=== PATIENT | female | born 1985 | race Caucasian/White ===

== ENCOUNTER 2020-05-26 13:35 | Outpatient (REF) | payer OTHER, SELFPAY | END 2020-05-26 13:36 | disposition home or self-care (01) | LOC: HO.LAB 13:35 | PROVIDERS: PCP Internal Medicine; Visit Provider Internal Medicine | DX: Z20.828 Contact with and (suspected) exposure to other viral communicable diseases (principal) | CPT/HCPCS: 87635 ==

== ENCOUNTER 2020-12-02 11:45 | Outpatient (REF) | payer OTHER, SELFPAY ==
[2020-12-02 13:07] LABS: COVID-19 Test Negative (Negative)
== END 2020-12-02 11:46 | disposition home or self-care (01) ==
LOC: HO.LAB 11:45
PROVIDERS: Visit Provider Internal Medicine
DX: Z20.822 Contact with and (suspected) exposure to COVID-19 (principal)
CPT/HCPCS: 36415; 87635; C9803

== ENCOUNTER 2021-08-04 10:43 | Outpatient (REF) | payer OTHER, SELFPAY | END 2021-08-04 10:44 | disposition home or self-care (01) | LOC: HO.LAB 10:43 | PROVIDERS: Visit Provider Internal Medicine | DX: Z20.822 Contact with and (suspected) exposure to COVID-19 (principal) | CPT/HCPCS: C9803; U0003; U0005 ==

== ENCOUNTER 2022-10-03 15:31 | Emergency (ER) | payer OTHER, SELFPAY ==
[2022-10-03 15:35] VITALS: BP 128/77; PULSE 93; RESP 18; TEMP 36.9; O2SAT 99; BMI 28.1
--- NOTE | 2022-10-03 15:42 | ED.EAR ---
HPI - Ear Problem General Chief complaint: Ear Problems Stated complaint: abcess on side of face? Time Seen by Provider: 10/03/22 15:41 Source: patient Mode of arrival: ambulatory Limitations: no limitations History of Present Illness HPI Narrative: 37 yo female with history of anxiety/depression, obesity, smoker, allergic rhinitis who presents to the ER for evaluation of right sided facial swelling, right external ear pain and drainage. She reports symptoms started about 1 month ago when she had a small cut inside of her right ear. She kept picking at it and noticed it kept crusting over with yellow crust. It would drain clear fluid. She states she kept picking at the scabbing and crust. Over the last couple of weeks she has noticed swelling in the preauricular area and down into the neck. It is swollen and tender compared to the left side. She denies any redness of the skin, fevers, chills, dental pain, inner ear pain, posterior ear pain MD Complaint: ear pain and ear discharge Location: right ear Duration: constant Severity: severe Relieving factors: NDAIDs Exacerbating factors: chewing, position of head and palpation Discharge from ear: yes - clear Associated symptoms ear: headache, external ear tenderness, ear swelling, neck pain and neck swelling Treatment prior to arrival: other (NSAID) Related Data Home Medications Medication Instructions Recorded Confirmed diazepam 10 mg tablet 10 mg PO BID 04/19/22 04/19/22 Previous Rx's Medication Instructions Recorded fluticasone propionate 50 2 spray intranasal DAILY PRN 04/19/22 mcg/actuation nasal allergy symptoms 30 days #16 grams spray,suspension trazodone 50 mg tablet 50 mg PO BEDTIME PRN insomnia 30 04/19/22 days #30 tabs ibuprofen 800 mg tablet 800 mg PO Q8H PRN pain 30 days #90 07/31/22 tabs levofloxacin 500 mg tablet 500 mg PO DAILY #10 tabs 10/03/22 mupirocin 2 % topical ointment 1 appl topical TID #22 grams 10/03/22 tramadol 50 mg tablet 50 mg PO Q8H PRN severe pain 10/03/22 (scale score 7-10) #6 tabs Allergies Allergy/AdvReac Type Severity Reaction Status Date / Time No Known Allergies Allergy Mild NOT Verified 04/19/22 13:20 APPLICABLE [facility] Past Medical History Medical History Allergic rhinitis Anxiety Depression Hyperhidrosis Insomnia Obesity (BMI 30-39.9) Smoker Surgical History (Updated 04/19/22 @ 13:40 by Florentino Canales MD) History of bilateral tubal ligation (~09/2015) History of tonsillectomy Social History Social History Housing: Apartment Patient Tobacco Use Status: Current everyday Tobacco user Tobacco use type: Cigarette Cigarettes Per Day: 5 e-Cigarette/Vaping Use: Never Used Second Hand Smoke Exposure: Yes Advance Directives: No Advance Directives Information Provided: Yes service: No Current occupational status: employed 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 Oriented X3. No acute distress. Eyes: Pupils equal, round and reactive to light. ENT: right external ear with a small superficial laceration to the external auditory canal with yellow crusting. right TM with mild erythema, no bulging or loss of landmarks. preauricular area on the right with moderate swelling and tenderness, no erythema or fluctuance. no mastoid tenderness. Neck: Normal inspection. Neck supple. right sided neck tenderness and mild swelling of the soft tissues laterally. CVS: Normal heart rate and rhythm. Pulses normal. Respiratory: No respiratory distress. Breath sounds normal. Skin: Skin warm and dry. Normal skin color. Normal skin turgor. No rashes. Extremities: Normal inspection x4, normal ROM Neuro: Oriented X 3. grossly normal, non-focal Course Course Course Narrative: 37 yo female presenting with right ear pain, swelling, discharge associated with facial and neck swelling. Normal ROM of the neck, no trismus. No erythema or warmth to the area. Most likely has superficial infection from inside of the ear with the small cut, that slowly spreading to the face. No abscess on exam. She is afebrile, nontoxic appearing. Will start PO antibiotics, topical mupricocin and have her follow up with her PCP. Stable for d/c home. Strict return precautions were discussed. Medical Decision Making Differential Diagnosis Differential Diagnoses: The differential diagnosis associated with the presentation includes otitis externa, otits media, facial abscess, superficial infection/cellulitis, less likely mastoiditis, deep tissue infection, dental infection External Record Review External record reviewed: Prior outpatient labs Tests considered The following testing was considered but not selected: labs and CT scan considered but deferred today - will treat with PO abx and reassess as outpatient by PCP Prescription Management I considered prescription management with: Pain Medication and Antibiotic Critical Care Time Critical Care Time Critical Care Time: No Discharge Plan Discharge Clinical Impression: Otitis externa, Facial swelling Patient Disposition: Home, Self-Care Instructions: Otitis Externa (ED) Additional Instructions: Use warm compresses to the area several times per day Take the prescribed antibiotic, complete the entire course Continue your ibuprofen 800 mg every 6-8 hours, take with food Follow up with your PCP in the next 1-2 weeks. If you develop new or worsening symptoms call 911 or come back to the ER for further evaluation. Prescriptions: New levofloxacin 500 mg tablet 500 mg PO DAILY Qty: 10 0RF mupirocin 2 % ointment 1 appl topical TID Qty: 22 0RF tramadol 50 mg tablet 50 mg PO Q8H PRN (Reason: severe pain (scale score 7-10)) Qty: 6 0RF No Action ibuprofen 800 mg tablet 800 mg PO Q8H PRN (Reason: pain) 30 Days Qty: 90 2RF Rx Instructions: Take with food diazepam 10 mg tablet 10 mg PO BID fluticasone propionate 50 mcg/actuation spray,suspension 2 spray intranasal DAILY PRN (Reason: allergy symptoms) 30 Days Qty: 16 5RF Rx Instructions: administer into each nostril trazodone 50 mg tablet 50 mg PO BEDTIME PRN (Reason: insomnia) 30 Days Qty: 30 1RF Referrals: Florentino Canales MD [Primary Care Provider] - Interventions: ED Discharge Assessment Last Done: 10/03/22 15:47 Discharge Date/Time: 10/03/22 15:50
== END 2022-10-03 15:50 | disposition home or self-care (01) ==
LOC: HO.ED 15:47
PROVIDERS: Emergency Provider Emergency Medicine; PCP Internal Medicine
DX: H60.91 Unspecified otitis externa, right ear (principal); R22.1 Localized swelling, mass and lump, neck; F17.210 Nicotine dependence, cigarettes, uncomplicated; Z71.6 Tobacco abuse counseling; Z79.899 Other long term (current) drug therapy
CPT/HCPCS: 99282; 99283

== ENCOUNTER 2023-05-24 19:12 | Emergency (ER) | payer OTHER, SELFPAY ==
[2023-05-24 19:16] VITALS: BP 121/80; PULSE 90; RESP 18; TEMP 36.9; O2SAT 97; BMI 28.2
--- NOTE | 2023-05-24 19:33 | ED_ITS ---
HPI - General Adult General Chief complaint: General Medical Stated complaint: rash all over body Time Seen by Provider: 05/24/23 19:31 Source: patient and RN notes reviewed Mode of arrival: ambulatory Limitations: no limitations History of Present Illness HPI narrative: This is a [id number] presenting to the ER with complaints of diffuse itchy rash throughout her entire body x several days. Pt denies nay new lotions, soaps, detergents or sleeping arangements. She states that she at times scratches so much her skin starts to bleed. States that her family at home are starting to have similar symptoms. PT reports that she is findings bugs in her apartment and her landlord has not had any bug exterminators come out to evaluate the property. She does report that someone came into her apartment and placed miec killer powder across her apartment that she is unsure if this is safe as it has instructions to keep within the bag. She denies any difficulty swallowing, chest pain, or shortness of breath. Denies hx of similar symptoms in the past. No fevers, chills, nausea, vomiting or diarrhea. She has tried topical benadryl without any relief. No other complaints or concerns at this time. MD complaint: Rash Onset (ago): day(s) Pain Consistency: constant Relieving factors: none Exacerbating factors: none Associated symptoms: rash Treatments prior to arrival: none Related Data Home Medications Medication Instructions Recorded Confirmed diazepam 10 mg tablet 10 mg PO BID 04/19/22 11/29/22 Previous Rx's Medication Instructions Recorded trazodone 50 mg tablet 50 mg PO BEDTIME PRN insomnia 30 04/19/22 days #30 tabs mupirocin 2 % topical ointment 1 appl topical TID #22 grams 10/03/22 tramadol 50 mg tablet 50 mg PO Q8H PRN severe pain 10/03/22 (scale score 7-10) #6 tabs ibuprofen 800 mg tablet 800 mg PO Q8H PRN pain 30 days #90 10/31/22 tabs fluticasone propionate 50 2 spray intranasal DAILY PRN for 11/25/22 mcg/actuation nasal allergies #48 mL spray,suspension miscellaneous medical supply 1 ea miscellaneous DAILY #1 ea 11/29/22 diphenhydramine HCl 50 mg tablet 50 mg PO BEDTIME PRN itching #20 05/24/23 (Benadryl Allergy) tabs permethrin 5 % topical cream 1 appl topical Q14D 2 doses #60 05/24/23 grams prednisone 20 mg tablet 40 mg (2 x 20 mg) PO DAILY 5 days 05/24/23 #10 tabs Allergies Allergy/AdvReac Type Severity Reaction Status Date / Time No Known Allergies Allergy Mild NOT Verified 05/24/23 19:16 APPLICABLE Review of Systems Review of Systems: Yes all other systems are reviewed and are negative Constitutional: Constitutional: Reports as per [facility] Past Medical History Attestation statement: The following information was validated with the patient. 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 Cognitive needs: No Hearing needs: No Vision needs: Yes Physical Exam ED Vital Signs: Vital Signs - 24 hr 05/24/23 19:16 Temperature 98.4 F Pulse Rate 90 Respiratory Rate 18 Blood Pressure 121/80 Pulse Oximetry 97 Oxygen Delivery Method Room Air BMI result Body Mass Index 28.2 Const General: cooperative, comfortable and no acute distress Orientation/consciousness: patient oriented x3 Limitations: no limitations [facility] Head: Yes normal to inspection, Yes normocephalic and Yes atraumatic Ears: hearing grossly normal bilaterally General nose exam: Normal external nose present Face and sinus: Yes normal facial exam Mouth: Normal oral and palatal mucosa present, oropharynx normal and moist mucous membranes Throat: Yes posterior oropharynx normal Eyes General: appearance normal, both eyes and all related structures Eyelids: Yes eyelids normal Conjunctivae: conjunctivae normal Sclerae: sclerae normal Pupils: Equal, round and reactive pupils present EOM: EOMs intact bilaterally Neck Neck: Yes normal visual inspection and Yes full ROM Lymphatic: no lymphadenopathy noted Chest Chest palpation & inspection: normal inspection of the chest Resp Effort & Inspection: normal respiratory effort and able to speak in complete sentences Auscultation: clear to auscultation bilaterally, no crackles, no rales, no rhonchi and no wheezes Cardio Rate: regular rate Rhythm: regular rhythm Heart sounds: S1 normal heart sound present and S2 normal heart sound present GI Inspection: Yes normal to inspection Skin Other: Pt with excoriations to bilateral forearms, no evidence of rash noted. scattered hives noted to left flank Neuro General: patient oriented x3 and moves all extremities Cranial nerves: Yes Equal, round and reactive pupils present Extrem General: Yes normal to inspection Right upper extremity: normal to inspection Left upper extremity: normal to inspection Right lower extremity: normal to inspection Left lower extremity: normal to inspection Medical Decision Making Medical Decision Making MDM Narrative: 37 y/o F presenting to the ER with complaints of itching for the last several days. Concerns for ?bug/allergic reaction to something in her home as several others in her house have similar symptoms. On arrival, pt actively scratching at arms. Vital signs stable. Airway patent, lung CTAB. Skin with no obvious rash, slight hives noted to flank, otherwise unremarkable examination. DDX including contact dermatitis, allergic dermatitis, atopic dermatitis, scabies, bed bugs. Given presentation, will treat for both allergic dermatitis and ?scabies given others in home are being treated for this as well. Discussed return precautions. Recommended to contact landlord for inspection of home. Pt understands and agrees with plan. Stable for d/c. Differential Diagnosis Differential Diagnoses: The differential diagnosis associated with the presentation includes see above Discharge Plan Discharge Clinical Impression: Itching Patient Disposition: Home, Self-Care Instructions: Itchy Skin (ED) Additional Instructions: It is unclear what is causing you to H however given your living situation as well as other close contacts with similar symptoms, is concerning that this can be a scabies or bug rash. Please contact your landlord immediately and have the place thoroughly examined by a bug legal executive assistant to determine what kind of bugs are within your living space. I am treating you with multiple medications. Benadryl will help with the itching sensation, this will cause drowsiness, do not drink alcohol or drive while taking it. Prednisone is a steroid, take this for the next 5 days, this will help decrease inflammation and itching sensation. Please use permethrin cream topically as directed. Please apply cream to all areas of the body from neck to soles of feet, leave on for 8-14 hours before moving. One application is usually curative but may repeat if living lytes are observed after 14 days of the 1st treatment. If any new or worsening symptoms will occur, please return for re-evaluation. Prescriptions: New prednisone 20 mg tablet 40 mg PO DAILY 5 Days Qty: 10 0RF Benadryl Allergy 50 mg tablet 50 mg PO BEDTIME PRN (Reason: itching) Qty: 20 0RF permethrin 5 % cream 1 appl topical Q14D Qty: 60 0RF Rx Instructions: apply second treatment 14 days after first treatment if live lice remain No Action ibuprofen 800 mg tablet 800 mg PO Q8H PRN (Reason: pain) 30 Days Qty: 90 2RF Rx Instructions: Take with food fluticasone propionate 50 mcg/actuation spray,suspension 2 spray intranasal DAILY PRN (Reason: for allergies) Qty: 48 1RF mupirocin 2 % ointment 1 appl topical TID Qty: 22 0RF tramadol 50 mg tablet 50 mg PO Q8H PRN (Reason: severe pain (scale score 7-10)) Qty: 6 0RF diazepam 10 mg tablet 10 mg PO BID trazodone 50 mg tablet 50 mg PO BEDTIME PRN (Reason: insomnia) 30 Days Qty: 30 1RF miscellaneous medical supply Misc 1 ea miscellaneous DAILY Qty: 1 0RF Rx Instructions: tavo wrap Interventions: ED Discharge Assessment Last Done: 05/24/23 19:53 Discharge Date/Time: 05/24/23 19:54
== END 2023-05-24 19:54 | disposition home or self-care (01) ==
LOC: HO.ED 19:49
PROVIDERS: Emergency Provider Emergency Medicine; PCP Internal Medicine
DX: L50.0 Allergic urticaria (principal); F17.210 Nicotine dependence, cigarettes, uncomplicated; Z71.6 Tobacco abuse counseling; Z79.899 Other long term (current) drug therapy
CPT/HCPCS: 99282; 99283

== ENCOUNTER 2023-06-15 11:25 | Outpatient (AMB) | payer OTHER, SELFPAY ==
[2023-06-15 11:38] VITALS: BP 122/80; PULSE 94; O2SAT 96; BMI 30.1
--- NOTE | 2023-06-15 11:38 | MHC.PC.OV ---
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 Accompanied by: Self / Same As Patient Allergies No Known Allergies Allergy (Mild, Verified 06/15/23 12:10) NOT APPLICABLE Medication List - Last Reconciled 06/15/23 by Florentino Canales MD diazepam 10 mg PO BID diphenhydramine HCl (Benadryl Allergy) 50 mg PO BEDTIME PRN fluoxetine 40 mg PO DAILY fluticasone propionate 50 mcg/actuation 2 sprays intranasal DAILY PRN ibuprofen 800 mg PO Q8H PRN 30 days miscellaneous medical supply 1 ea miscellaneous DAILY mupirocin 2% 1 appl topical TID permethrin 5% 1 appl topical Q14D 1 dose prednisone 40 mg (2 x 20 mg) PO DAILY 5 days tramadol 50 mg PO Q8H PRN trazodone 50 mg PO BEDTIME PRN 30 days Tobacco use date assessed: 06/15/23 Dental Screening Dental Screen Date: 06/15/23 Did you have a dental visit in the last 12 months?: Yes Did you have a dental problem in the last 6 months where you did not have access to dental care?: No Was dental information given to patient?: Patient has dentist HPI [facility] ed follow up for rash HPI Details Patient comes in today for her [facility] follow up visit She was seen at the ER about 3 weeks ago for increased itching and she also broke out at the time with an itchy rash all over her for a few days States that her daughter first broke out with the rash about 1 to 2 weeks ago and despite a few different Rx prescribed by her curator, her symptoms were not really improving They noticed that subsequently, everyone in the household, including patient herself, all came down with the same symptoms and rash at which point, they began to suspect that they have scabies She was treated in the ER then with Permethrin 5% cream and Benadryl PRN for her itching as well as some oral Prednisone for a few days States that her symptoms have since improved a lot although she appears to still be breaking out with some new lesions similar to what she had and she is concerned that her scabies has not yet been completely eradicated She denies any fever, headaches or dizziness Denies any shortness of breath or chest pains No nausea/vomiting, no abdominal pain No change in bowel habits noted Needs a couple of her Rx refilled Would also like to get her flu shot today PFSH Medical History Insomnia Allergic rhinitis Depression Anxiety Hyperhidrosis Obesity (BMI 30-39.9) Smoker Surgical History History of bilateral tubal ligation (~09/2015) History of tonsillectomy Social History Housing: Apartment Patient Tobacco Use Status: Current everyday Tobacco user Tobacco use type: Cigarette Cigarettes Per Day: 5 e-Cigarette/Vaping Use: Never Used Second Hand Smoke Exposure: Yes service: No Current occupational status: employed 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 1. Little interest or pleasure in doing things: not at all 2. Feeling down, depressed, or hopeless: not at all 3. Trouble falling or staying asleep, or sleeping too much: not at all 4. Feeling tired or having little energy: not at all 5. Poor appetite or overeating: not at all 6. Feeling bad about yourself - or that you are a failure or have let yourself or your family down: not at all 7. Trouble concentrating on things, such as reading the newspaper or watching television: not at all 8. Moving or speaking so slowly that other people could have noticed. Or the opposite - being so fidgety or restless that you have been moving around a lot more than usual: not at all 9. Thoughts that you would be better off or of hurting yourself in some way: not at all Total score: 0 Depression Screening Interpretation: Negative (is on medication and seeing psychiatry) Depression Screening Done: Yes [id number] - PHQ-9 Billing: Yes Source: Developed by Drs. Emmanuel Barrera, Cheryl Arriola, Jorden Guzman and colleagues, with an educational heather from [employer]. Thrive Questionnaire Date Thrive assessed: 06/15/23 I am a: Patient What is your living situation today?: I have a steady place to live Within the past 12 months, did the food you bought not last and you didn't have the money to get more?: Never true Within the past 12 months, did you worry whether your food would run out before you got money to buy more?: Never true Do you have trouble paying for medicines?: No Do you have trouble getting transportation to medical appointments?: No Do you have trouble paying your heating and electricity bill?: No Do you have trouble taking care of your child, family member or friend?: No Do you have trouble with day-to-day activities such as bathing, preparing meals, shopping, managing finances, etc.?: No Are you currently unemployed and looking for a job?: No Are you interested in more education?: No Please select the resources that you would like help with: None Currently or been in a relationship where the following occur: no concerns reported AUDIT C Alcohol Use Questionnaire (AUDIT-C) 1. How often do you have a drink containing alcohol?: Never 3. How often do you have six or more drinks on one occasion?: Never Total Score: 0 Score Reviewed/Action Taken: Yes TAMERA-7 AMB Questionnaire TAMERA-7 Date TAMERA - 7 assessed: 06/15/23 Feeling nervous, anxious, or on edge: 1 = Several days Not being able to stop or control worryin = Several days Worrying too much about different things: 1 = Several days Trouble relaxin = Several days Being so restless that it is hard to sit still: 1 = Several days Becoming easily annoyed or irritable: 1 = Several days Feeling afraid as if something awful might happen: 1 = Several days Total TAMERA-7 score (0-4 normal; 5-9 mild; 10-14 moderate; 15-21 severe): 7 Source: Developed by Drs. Emmanuel Barrera, Cheryl Arriola, Jorden Guzman and colleagues, with an educational heather from [employer]. TAMERA-7 Assessment Billing TAMERA-7 Assessment Tool: TAMERA-7 Assessment 23856 Review of Systems Const Denies chills, Denies fatigue, Denies fever(s) and Denies headache(s) ENT Denies dysphagia, Denies dizziness, Denies otalgia, Denies headache(s), Denies neck pain, Denies odynophagia and Denies sore throat Card Denies chest pain, Denies palpitations and Denies dyspnea Resp Denies cough and Denies dyspnea GI Denies abdominal pain, Denies constipation, Denies dysphagia, Denies heartburn, Denies diarrhea, Denies nausea, Denies odynophagia and Denies vomiting Denies difficulty voiding, Denies nocturia and Denies dysuria Musc Reports arthralgias (on and off, involving multiple joints) and Denies neck pain Skin/Breast Details: (+) recurrent scattered itchy lesions/rash all over - due to scabies Neuro Denies dizziness and Denies headache(s) Endo Denies fatigue and Denies palpitations Physical exam (Primary Care) Vital Signs: Last Vital Signs Pulse 94 06/15/23 11:38 BP 122/80 06/15/23 11:38 Pulse Ox 96 06/15/23 11:38 Oxygen Delivery Method Room Air 06/15/23 11:38 BMI result Body Mass Index 30.1 Tobacco/Smoking Status: Tobacco use Status Tobacco use date assessed 06/15/23 06/15/23 11:40 Patient Tobacco Use Status Current everyday Tobacco 06/15/23 11:40 Tobacco use type Cigarette 06/15/23 11:40 e-Cigarette/Vaping Use Never Used 06/15/23 11:40 PHQ-9: PHQ-9 Score PHQ-9: Total score 0 06/16/23 05:21 Depression Screening Interpretation: Negative (is on medication and seeing psychiatry) Thrive Assessment: Date of Thrive Assessment Date Thrive assessed 06/15/23 06/15/23 11:40 Currently or been in a relationship where the following occur: no concerns reported Const General: no acute distress and alert HENMT Ears: TM's normal bilaterally and EAC's normal Throat: Yes posterior oropharynx normal and Yes tonsils normal (no TP congestion) Neck Neck: Yes no lymphadenopathy and Yes supple Thyroid: Thyroid normal Resp Auscultation: clear to auscultation bilaterally, no rales and no wheezes Cardio Rate: regular rate Rhythm: regular rhythm Heart sounds: no murmurs GI Palpation (GI): Soft to palpation and nontender Auscultation: normal bowel sounds General: Yes no CVA tenderness Back/Spine/Pelvis Back: no CVA tenderness Skin Other: (+) few scattered erythematous papulovesicular lesions all over, including a few on her left preauricular area and more over her arms and legs Extrem General: Yes no clubbing, cyanosis or edema Office Procedures Flu Questionnaire Does the patient have a severe egg allergy?: No Does the patient have severe life threatening allergies?: No Does the patient have a fever or illness today?: No Has the patient ever had Guillain-[place] Syndrome?: No Has the patient ever had any past reaction to a flu shot?: No Immunizations flu vacc [id number] 6mos up(PF) 60 mcg(15 mcgx4)/0.5 mL IM syringe Performing Provider: Florentino Canales MD [facility] Administered by: Andres Pisano on 06/15/23 12:30 Dose Route Admin Location Dispensed Lot Number Expiration Date NDC Director Of Maintenance 0.5 mL IM Left Deltoid 0.5 mL [id number] 02/11/24 24356-454-33 Palmap VIS Given Date VIS Provided VIS Publication Date 06/15/23 Single Vaccine 21 Eligibility Eligibility Date Funding Source Not [facility] Eligible 06/15/23 Private Assessment and Plan Assessment & Plan (1) Scabies: Code(s): B86 - Scabies Plan: S/P Tx with Permethrin 5% cream x 1 a few weeks ago but patient is currently still having some recurrent lesions and increased itching Will go ahead and treat her with another dose of Permethrin 5% cream She is advised to make sure that everyone else in the household is treated completely to avoid any recurrence Will start again on Prednisone 40 mg QD x 5 days Continue Benadryl 50 mg TID PRN - Rx refilled (2) Allergic rhinitis: Code(s): J30.9 - Allergic rhinitis, unspecified Qualifiers: Allergic rhinitis seasonality: unspecified Allergic rhinitis trigger: unspecified Qualified Code(s): J30.9 - Allergic rhinitis, unspecified Plan: Continue Fluticasone 50 mcg nasal spray QD PRN (3) Arthralgia: Code(s): M25.50 - Pain in unspecified joint Qualifiers: Joint pain location: unspecified Qualified Code(s): M25.50 - Pain in unspecified joint Plan: Continue Ibuprofen 800 mg TID with food PRN - Rx refilled (4) Insomnia: Code(s): G47.00 - Insomnia, unspecified Qualifiers: Insomnia type: unspecified Qualified Code(s): G47.00 - Insomnia, unspecified Plan: Sleep hygiene reinforced Continue Trazodone 50 mg Q HS PRN (Rx is being prescribed and managed by psychiatry) (5) Anxiety: Code(s): F41.9 - Anxiety disorder, unspecified Plan: Continue Diazepam 10 mg BID (Rx is also being refilled and managed by psychiatry) Follow up with psychiatry as scheduled (6) Depression: Code(s): F32.A - Depression, unspecified Qualifiers: Active/Remission status: currently active Depression Type: major depressive disorder Major depression episode severity: unspecified Major depression recurrence: recurrent Qualified Code(s): F33.9 - Major depressive disorder, recurrent, unspecified Plan: Continue Fluoxetine 40 mg QD Follow up with psychiatry as scheduled (7) Smoker: Code(s): F17.200 - Nicotine dependence, unspecified, uncomplicated Plan: Counseled again on smoking cessation (8) Obesity (BMI 30-39.9): Code(s): E66.9 - Obesity, unspecified Plan: Reinforced diet/exercise as tolerated/lose weight Plan Per request, flu vaccine given today To return in 3 months for her annual physical examination Patient is reminded to get her labs done BEFORE she comes in for her physical exam Orders: Orders Complete Blood Count Auto Diff 3 Months F17.200 - Nicotine dependence, unspecified, uncomplicated, J30.9 - Allergic rhinitis, unspecified, Z00.00 - Encounter for general adult medical examination without abnormal findings Comprehensive [place]. Panel Fast 3 Months E78.00 - Pure hypercholesterolemia, unspecified, F17.200 - Nicotine dependence, unspecified, uncomplicated, J30.9 - Allergic rhinitis, unspecified, Z00.00 - Encounter for general adult medical examination without abnormal findings Influenza [id number] Immunization 06/15/23 Z23 - Encounter for immunization Lipid Panel 3 Months F17.200 - Nicotine dependence, unspecified, uncomplicated, J30.9 - Allergic rhinitis, unspecified, Z00.00 - Encounter for general adult medical examination without abnormal findings TSH reflex Free T4 3 Months J30.9 - Allergic rhinitis, unspecified, Z00.00 - Encounter for general adult medical examination without abnormal findings UA CC w/rflx Micro + Cult 3 Months R30.0 - Dysuria, Z00.00 - Encounter for general adult medical examination without abnormal findings Vitamin D 25-OH Total 3 Months E55.9 - Vitamin D deficiency, unspecified, Z00.00 - Encounter for general adult medical examination without abnormal findings Medications: Refilled permethrin 5% apply second treatment 14 days after first treatment if live lice remain 1 appl topical Q14D 60 grams 0RF ibuprofen Take with food 800 mg PO Q8H 30 days PRN 90 tabs 2RF pain diphenhydramine HCl (Benadryl Allergy) 50 mg PO BEDTIME PRN 30 tabs 2RF itching fluticasone propionate 50 mcg/actuation 2 sprays intranasal DAILY PRN 48 mL 3RF for allergies prednisone 40 mg (2 x 20 mg) PO DAILY 5 days 10 tabs 0RF Coding Level of Care Code Est Pt Level 4 (74182) Diagnoses Scabies B86 Allergic rhinitis, unspecified seasonality, unspecified trigger J30.9 Allergic rhinitis seasonality: unspecified Allergic rhinitis trigger: unspecified Arthralgia, unspecified joint M25.50 Joint pain location: unspecified Insomnia, unspecified type G47.00 Insomnia type: unspecified Anxiety F41.9 Episode of recurrent major depressive disorder, unspecified depression episode severity F33.9 Active/Remission status: currently active Depression Type: major depressive disorder Major depression episode severity: unspecified Major depression recurrence: recurrent Smoker F17.200 Obesity (BMI 30-39.9) E66.9 Additional Codes TAMERA-7 Assessment Billing - TAMEAR-7 Assessment Tool: TAMERA-7 Assessment 57187 ([id number])
== END 2023-06-15 12:32 | disposition home or self-care (01) ==
PROVIDERS: PCP Internal Medicine; Visit Provider Internal Medicine
DX: Z23 Encounter for immunization (principal)
CPT/HCPCS: 90471; 90686; 96127; 99214

== ENCOUNTER 2023-09-20 11:05 | Outpatient (AMB) | payer OTHER, SELFPAY ==
[2023-09-20 11:10] VITALS: BP 120/68; PULSE 82; TEMP 36.6; O2SAT 98
--- NOTE | 2023-09-20 11:10 | MHC.OFFWIV ---
Intake Vital Signs 09/20/23 11:10 Height 5 ft 7 in BP 120/68 Blood Pressure Location Lt brachial Position Sitting Pulse 82 Pulse Source Pulse Oximeter Temp 97.8 F Temp Source Temporal Artery Scan Pulse Oximetry (%) 98 Oxygen Delivery Method Room Air Intake Visit Reasons: EP UTI Intake Note: pt is here today for UTI started 2 days ago Patient Tobacco Use Status: Current everyday Tobacco user Allergies No Known Allergies Allergy (Mild, Verified 09/20/23 11:14) NOT APPLICABLE Do you need a note to return to daycare/school/sports/work: No HPI HPI Comments History of Present Illness Details This is a 38-year-old female with a past medical history of anxiety and insomnia presenting for evaluation of suprapubic pain that she has had for the past 2 days coupled with urinary frequency. Patient states that she is only able to urinate a very small amount when she voids. Patient denies having any fevers, chills, vaginal discharge, hematuria or overt dysuria. Patient's last bowel movement was this morning and it was of normal caliber. Her last normal menstrual period started approximately 1 month ago and she is expecting her menses today or tomorrow. Patient has not taken any medication for treatment of her symptoms. 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 Cognitive needs: No Hearing needs: No Vision needs: Yes Review of Systems Const Denies chills, Denies fatigue and Denies fever(s) Card Reports no additional complaints Resp Reports no additional complaints GI Reports no additional complaints and Reports abdominal pain (suprapubic; denies flank pain) Denies hematuria, Reports urinary frequency, Denies dysuria, Denies urinary incontinence, Denies urinary hesitancy, Reports urinary urgency and Denies vaginal discharge Musc Reports no additional complaints Endo Denies fatigue Physical Exam Vital Signs: Last Vital Signs Temp 97.8 F 09/20/23 11:10 Pulse 82 09/20/23 11:10 BP 120/68 09/20/23 11:10 Pulse Ox 98 09/20/23 11:10 Oxygen Delivery Method Room Air 09/20/23 11:10 Const General: cooperative, healthy appearing, comfortable and no acute distress Nutritional Appearance: average body habitus Orientation/consciousness: patient oriented x3 Limitations: no limitations Cardio Rate: regular rate Rhythm: regular rhythm GI Palpation (GI): Soft to palpation, not firm, nontender and no guarding Auscultation: normal bowel sounds General: Yes Bimanual renal exam normal bilaterally, Yes bladder normal to palpation and Yes no CVA tenderness Bimanual exam- vagina & uterus: bladder normal to palpation Back/Spine/Pelvis Back: no CVA tenderness Neuro General: patient oriented x3 Psych Appearance: grossly normal Mental Status: mental status grossly normal Insight: Good insight present (Psych) Judgement: Good judgement present (Psych) Results AMB Urinalysis, Automated UA Leukoctes 0 Alex/uL Last Edit by Malu Corrales CMA on 09/20/23 11:18 UA Nitrite Negative Last Edit by Malu Corrales CMA on 09/20/23 11:18 UA Urobilinogen 0.2 mg/dL Last Edit by Malu Corrales CMA on 09/20/23 11:18 UA Protein 30 mg/dL Last Edit by Malu Corrales CMA on 09/20/23 11:18 UA pH 6.0 Last Edit by Malu Corrales CMA on 09/20/23 11:18 UA Blood 80 Juan J/uL Last Edit by Malu Corrales CMA on 09/20/23 11:18 UA Specific Armstrong 1.020 Last Edit by Malu Corrales CMA on 09/20/23 11:18 UA Ketone Negative Last Edit by Malu Corrales CMA on 09/20/23 11:18 UA Bilirubin 0 mg/dL Last Edit by Malu Corrales CMA on 09/20/23 11:18 UA Glucose 0 mg/dL Last Edit by Malu Corrales CMA on 09/20/23 11:18 Results Reviewed Results Reviewed: Laboratory Last Values Urine pH (Auto) 6.0 09/20/23 11:17 Specific Armstrong (Auto) 1.020 09/20/23 11:17 Urine Protein (Auto) 30 mg/dL 09/20/23 11:17 Glucose (UA)(Auto) 0 mg/dL 09/20/23 11:17 Urine Ketones (Auto) Negative 09/20/23 11:17 Urine Blood (Auto) 80 Juan J/uL 09/20/23 11:17 Urine Nitrite (Auto) Negative 09/20/23 11:17 Urine Bilirubin (Auto) 0 mg/dL 09/20/23 11:17 Urine Urobilinogen (Auto) 0.2 mg/dL 09/20/23 11:17 Leukocyte Esterase (Auto) 0 Alex/uL 09/20/23 11:17 Urinalysis reviewed with patient. Assessment & Plan Assessment & Plan (1) Increased urinary frequency: Comment: Patient's history coupled her examination is most likely consistent with an acute urinary tract infection. Urinalysis reveals hematuria without nitrites. Patient will be treated with Macrobid. Code(s): R35.0 - Frequency of micturition Plan: Macrobid b.i.d. x7 days. Patient instructed to return for any worsening symptoms. Orders: Orders AMB Urinalysis Automated 09/20/23 Z13.9 - Encounter for screening, unspecified Medications: New nitrofurantoin macrocrystal must administer with a meal/food 100 mg PO BID 14 caps 0RF Coding Level of Care Code Est Pt Level 3 (58338) Diagnoses Increased urinary frequency R35.0 Time Spent (min) 20
== END 2023-09-20 11:22 | disposition home or self-care (01) ==
PROVIDERS: PCP Internal Medicine; Visit Provider Physician Assistant
DX: R35.0 Frequency of micturition (principal)
CPT/HCPCS: 81003; 99213

== ENCOUNTER 2023-10-12 10:09 | Outpatient (AMB) | payer OTHER, SELFPAY ==
--- NOTE | 2023-10-12 10:23 | A.OFFPC_ITS ---
Vital Signs 10/12/23 10:24 Height 5 ft 7 in Weight 191 lb 2 oz BMI 29.9 BP 108/72 Blood Pressure Location Lt brachial Position Sitting Pulse 73 Pulse Source Pulse Oximeter Pulse Oximetry (%) 96 Oxygen Delivery Method Room Air Intake Visit Reasons: pe Flame Burner Required: No Accompanied by: Self / Same As Patient Allergies No Known Allergies Allergy (Mild, Verified 10/12/23 11:05) NOT APPLICABLE Medication List - Last Reconciled 10/12/23 by Florentino Canales MD aripiprazole 5 mg PO DAILY diazepam 10 mg PO BID diphenhydramine HCl (Benadryl Allergy) 50 mg PO BEDTIME PRN fluoxetine 40 mg PO DAILY fluoxetine 20 mg PO DAILY fluticasone propionate 50 mcg/actuation 2 sprays intranasal DAILY PRN ibuprofen 800 mg PO Q8H PRN 30 days miscellaneous medical supply 1 ea miscellaneous DAILY mupirocin 2% 1 appl topical TID tramadol 50 mg PO Q8H PRN trazodone 50 mg PO BEDTIME PRN 30 days Tobacco use date assessed: 10/12/23 Dental Screening Dental Screen Date: 10/12/23 Did you have a dental visit in the last 12 months?: Yes Did you have a dental problem in the last 6 months where you did not have access to dental care?: No Was dental information given to patient?: Patient has dentist HPI bassam HPI Details Patient comes in today for her annual physical examination States that she feels okay She denies any headaches or dizziness Denies any chest pains, no shortness of breath No nausea/vomiting, no abdominal pain No change in bowel habits noted Denies any acute urinary symptoms States that she continues to experience recurrent allergy symptoms and recently realized that her symptoms are mostly due to the presence of rat droppings inside her apartment States that she has complained about rat infestation to her landlord for months now but her landlord is too cheap to do anything meaningful about it States that she is planning to move out of her current apartment soon as the results Adds that she would like to get a referral to dermatology for evaluation of some scattered residual dark and crusted lesions from her bout with scabies a few months ago States that these lesions sometimes get very itchy Needs a couple of her Rx refill She has not been able to get her follow-up labs done yet [facility] Medical History Insomnia Allergic rhinitis Depression Anxiety Hyperhidrosis Obesity (BMI 30-39.9) Smoker Surgical History History of bilateral tubal ligation (~09/2015) History of tonsillectomy Social History Housing: Apartment Patient Tobacco Use Status: Current everyday Tobacco user Tobacco use type: Cigarette Cigarettes Per Day: 5 e-Cigarette/Vaping Use: Never Used Second Hand Smoke Exposure: Yes service: No Current occupational status: employed Current occupation: [employer] Cognitive needs: No Hearing needs: No Vision needs: Yes Questionnaire PHQ-9 Over the last 2 weeks, how often have you been bothered by any of the following problems? 1. Little interest or pleasure in doing things: not at all 2. Feeling down, depressed, or hopeless: not at all 3. Trouble falling or staying asleep, or sleeping too much: not at all 4. Feeling tired or having little energy: not at all 5. Poor appetite or overeating: not at all 6. Feeling bad about yourself - or that you are a failure or have let yourself or your family down: not at all 7. Trouble concentrating on things, such as reading the newspaper or watching television: not at all 8. Moving or speaking so slowly that other people could have noticed. Or the opposite - being so fidgety or restless that you have been moving around a lot more than usual: not at all 9. Thoughts that you would be better off or of hurting yourself in some way: not at all Total score: 0 Depression Screening Interpretation: Negative (is on medication and seeing psychiatry) Depression Screening Done: Yes 70155 - PHQ-9 Billing: Yes Source: Developed by Drs. Emmanuel Barrera, Cheryl Arriola, Jorden Guzman and colleagues, with an educational heather from [employer]. Thrive Questionnaire Date Thrive assessed: 10/12/23 I am a: Patient What is your living situation today?: I have a steady place to live Within the past 12 months, did the food you bought not last and you didn't have the money to get more?: Never true Within the past 12 months, did you worry whether your food would run out before you got money to buy more?: Never true Do you have trouble paying for medicines?: No Do you have trouble getting transportation to medical appointments?: No Do you have trouble paying your heating and electricity bill?: No Do you have trouble taking care of your child, family member or friend?: No Do you have trouble with day-to-day activities such as bathing, preparing meals, shopping, managing finances, etc.?: No Are you currently unemployed and looking for a job?: No Are you interested in more education?: No Please select the resources that you would like help with: None Currently or been in a relationship where the following occur: no concerns reported THRIVE Score: 0 AUDIT C Alcohol Use Questionnaire (AUDIT-C) 1. How often do you have a drink containing alcohol?: Never 3. How often do you have six or more drinks on one occasion?: Never Total Score: 0 Score Reviewed/Action Taken: Yes TAMERA-7 AMB Questionnaire TAMERA-7 Date TAMERA - 7 assessed: 10/12/23 Feeling nervous, anxious, or on edge: 1 = Several days Not being able to stop or control worryin = Several days Worrying too much about different things: 1 = Several days Trouble relaxin = Several days Being so restless that it is hard to sit still: 1 = Several days Becoming easily annoyed or irritable: 1 = Several days Feeling afraid as if something awful might happen: 1 = Several days Total TAMERA-7 score (0-4 normal; 5-9 mild; 10-14 moderate; 15-21 severe): 7 Source: Developed by Drs. Emmanuel Barrera, Cheryl Arriola, Jorden Guzman and colleagues, with an educational heather from [employer]. TAMERA-7 Assessment Billing TAMERA-7 Assessment Tool: TAMERA-7 Assessment 46911 Review of Systems Const Denies chills, Denies fatigue, Denies fever(s), Denies headache(s) and Denies malaise Eyes Denies blurry vision, Denies change in vision, Denies irritation and Denies itchy eyes ENT Denies dysphagia, Denies dizziness, Denies otalgia, Denies headache(s), Reports nasal congestion (on and off), Reports nasal discharge (on and off), Denies neck pain, Denies odynophagia, Denies sinus pain and Denies sore throat Card Denies chest pain, Denies rapid heart rate, Denies irregular heart rhythm, Denies palpitations and Denies dyspnea Resp Denies chest congestion, Denies cough, Denies dyspnea and Denies wheezing GI Denies abdominal pain, Denies bloating, Denies constipation, Denies dysphagia, Denies heartburn, Denies diarrhea, Denies nausea, Denies odynophagia and Denies vomiting Denies hematuria, Denies urinary frequency, Denies dysuria, Denies urinary incontinence and Denies urinary urgency Musc Denies back pain, Denies arthralgias, Denies joint swelling, Denies muscle weakness and Denies neck pain Skin/Breast Details: (+) few scattered dark crusted skin lesions that get itchy at times - see HPI Denies breast pain, Denies breast mass, Denies change in pigmentation, Denies rash and Denies unusual bruising Neuro Denies dizziness, Denies headache(s) and Denies paresthesias Psych Denies anxiety and Denies depression Endo Denies fatigue and Denies palpitations Dewayne/Lymph Denies easy bruising Aller/Immun Denies itchy eyes and Denies wheezing Physical exam (Primary Care) Vital Signs: Last Vital Signs Pulse 73 10/12/23 10:24 BP 108/72 10/12/23 10:24 Pulse Ox 96 10/12/23 10:24 Oxygen Delivery Method Room Air 10/12/23 10:24 BMI result Body Mass Index 29.9 Tobacco/Smoking Status: Tobacco use Status Tobacco use date assessed 10/12/23 10/12/23 10:30 Patient Tobacco Use Status Current everyday Tobacco 10/12/23 10:30 Tobacco use type Cigarette 10/12/23 10:30 e-Cigarette/Vaping Use Never Used 10/12/23 10:30 PHQ-9: PHQ-9 Score PHQ-9: Total score 0 10/12/23 23:47 Depression Screening Interpretation: Negative (is on medication and seeing psychiatry) Thrive Assessment: Date of Thrive Assessment Date Thrive assessed 10/12/23 10/12/23 10:30 Currently or been in a relationship where the following occur: no concerns reported Const General: no acute distress, alert and awake Orientation/consciousness: patient oriented x3 HENMT Head: Yes normocephalic and Yes atraumatic Ears: external ears normal, TM's normal bilaterally and EAC's normal General nose exam: No nasal discharge present Face and sinus: Yes normal facial exam and Yes sinuses nontender Teeth and gingiva: dentition normal Throat: Yes posterior oropharynx normal and Yes tonsils normal (no TP congestion) Eyes Eyelids: Yes eyelids normal Conjunctivae: conjunctivae normal Pupils: Equal, round and reactive pupils present EOM: EOMs intact bilaterally Neck Neck: Yes no lymphadenopathy and Yes supple Thyroid: Thyroid normal Resp Auscultation: clear to auscultation bilaterally, no rales and no wheezes Cardio Rate: regular rate Rhythm: regular rhythm Heart sounds: no murmurs GI Palpation (GI): Soft to palpation, nontender and No hepatosplenomegaly present Auscultation: normal bowel sounds General: Yes no CVA tenderness Back/Spine/Pelvis Back: no CVA tenderness Thoracic/Lumbar Spine: thoracic and lumbar spine normal to inspection Skin Other: (+) few scattered hyperpigmented crusted small skin lesions Rashes: no rashes Neuro General: patient oriented x3, moves all extremities, no focal motor deficits and CN's II-XI intact bilaterally Cranial nerves: Yes Equal, round and reactive pupils present Cognition (Neuro): normal cognition Gait exam (Neuro): Normal gait present Extrem General: Yes no clubbing, cyanosis or edema Assessment and Plan Assessment & Plan (1) Annual physical exam: Code(s): Z00.00 - Encounter for general adult medical examination without abnormal findings Plan: Check labs - patient is instructed to try getting her labs done JEANINE - these saeed ve already been ordered at her previous appointment a few months ago (2) Allergic rhinitis: Code(s): J30.9 - Allergic rhinitis, unspecified Qualifiers: Allergic rhinitis trigger: unspecified Allergic rhinitis seasonality: unspecified Qualified Code(s): J30.9 - Allergic rhinitis, unspecified Plan: Continue Fluticasone 50 mcg nasal spray QD PRN (3) Arthralgia: Code(s): M25.50 - Pain in unspecified joint Qualifiers: Joint pain location: unspecified Qualified Code(s): M25.50 - Pain in unspecified joint Plan: Continue Ibuprofen 800 mg TID with food PRN (Rx refilled) and Tramadol 50 mg TID PRN for pain (4) Skin lesions: Code(s): L98.9 - Disorder of the skin and subcutaneous tissue, unspecified Plan: Per request, will refer her to dermatology for further evaluation and management (5) Insomnia: Code(s): G47.00 - Insomnia, unspecified Qualifiers: Insomnia type: unspecified Qualified Code(s): G47.00 - Insomnia, unspecified Plan: Sleep hygiene reinforced Continue Diphenhydramine 50 mg Q HS and Trazodone 50 mg Q HS PRN (Rx is being prescribed and managed by psychiatry) (6) Anxiety: Code(s): F41.9 - Anxiety disorder, unspecified Plan: Continue Diazepam 10 mg BID (Rx is also being refilled and managed by psychiatry) Follow up with psychiatry as scheduled (7) Depression: Code(s): F32.A - Depression, unspecified Qualifiers: Depression Type: major depressive disorder Major depression recurrence: recurrent Active/Remission status: currently active Major depression episode severity: unspecified Qualified Code(s): F33.9 - Major depressive disorder, recurrent, unspecified Plan: Continue Fluoxetine 60 mg QD and Aripiprazole 5 mg QD Follow up with psychiatry as scheduled (8) Smoker: Code(s): F17.200 - Nicotine dependence, unspecified, uncomplicated Plan: Counseled again on smoking cessation (9) Obesity (BMI 30-39.9): Code(s): E66.9 - Obesity, unspecified Plan: Reinforced diet/exercise as tolerated/lose weight (10) Cervical cancer screening: Code(s): Z12.4 - Encounter for screening for malignant neoplasm of cervix Plan: Will refer her to [facility] for her annual pap smear and gynecology exam - states that it has been 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 now 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 Plan Follow up in 6 months Orders: Referrals Dermatology Referral L98.9 - Disorder of the skin and subcutaneous tissue, unspecified [employer] Referral Z12.4 - Encounter for screening for malignant neoplasm of cervix Medications: Refilled fluticasone propionate 50 mcg/actuation 2 sprays intranasal DAILY PRN 48 mL 3RF for allergies ibuprofen Take with food 800 mg PO Q8H 30 days PRN 90 tabs 2RF pain Coding Level of Care Code Est Pt Prev Care 18-39y(57619) Diagnoses Annual physical exam Z00.00 Allergic rhinitis, unspecified seasonality, unspecified trigger J30.9 Allergic rhinitis trigger: unspecified Allergic rhinitis seasonality: unspecified Arthralgia, unspecified joint M25.50 Joint pain location: unspecified Skin lesions L98.9 Insomnia, unspecified type G47.00 Insomnia type: unspecified Anxiety F41.9 Episode of recurrent major depressive disorder, unspecified depression episode severity F33.9 Depression Type: major depressive disorder Major depression recurrence: recurrent Active/Remission status: currently active Major depression episode severity: unspecified Smoker F17.200 Obesity (BMI 30-39.9) E66.9 Cervical cancer screening Z12.4 Additional Codes TAMERA-7 Assessment Billing - TAMERA-7 Assessment Tool: TAMERA-7 Assessment 19556 ([id number])
[2023-10-12 10:24] VITALS: BP 108/72; PULSE 73; O2SAT 96; BMI 29.9
== END 2023-10-12 11:07 | disposition home or self-care (01) ==
PROVIDERS: PCP Internal Medicine; Visit Provider Internal Medicine
DX: Z00.00 Encounter for general adult medical examination without abnormal findings (principal); J30.9 Allergic rhinitis, unspecified; L98.9 Disorder of the skin and subcutaneous tissue, unspecified; F33.9 Major depressive disorder, recurrent, unspecified; G47.00 Insomnia, unspecified; F41.9 Anxiety disorder, unspecified; F17.200 Nicotine dependence, unspecified, uncomplicated; E66.9 Obesity, unspecified; Z12.4 Encounter for screening for malignant neoplasm of cervix
CPT/HCPCS: 99395

== ENCOUNTER 2024-01-23 18:06 | Emergency (ER) | payer OTHER, SELFPAY ==
--- NOTE | ~2024-01-23 | XR_ITS ---
EXAMINATION: XR CHEST CLINICAL INFORMATION: Left-sided chest pain COMPARISON: Chest x-ray on 08/23/2018 TECHNIQUE: 2 views of the chest were obtained. FINDINGS: vascularity. LUNGS: Lungs are clear. No pneumothorax is seen. BONES: Bony skeleton is intact. Bilateral nipple piercing ornaments are present. XR/XR chest 2V IMPRESSION: Unchanged Normal chest x-ray.
--- NOTE | 2024-01-23 18:07 | ECG_ITS ---
Test Reason : CHEST PAIN Blood Pressure : / mmHG Vent. Rate : 080 BPM Atrial Rate : 080 BPM P-R Int : 130 ms QRS Dur : 076 ms QT Int : 366 ms P-R-T Axes : 035 023 016 degrees QTc Int : 422 ms Normal sinus rhythm Low voltage QRS Borderline ECG When compared with ECG of 23-AUG-2018 19:54, T wave amplitude has decreased in Anterior leads Referred By: So Bird Electronically Signed By:JONEL BARBOSA
[2024-01-23 18:22] VITALS: BP 105/72; PULSE 98; RESP 18; TEMP 36.6; O2SAT 96; BMI 31.2
[2024-01-23 18:59] LABS: MANUAL DIFF FLAG NO
[2024-01-23 19:07] LABS: Basophils Absolute Auto 0.1 X10*3/uL (0.0-0.2); Basophils Percent Auto 0.8 % (0-2); Eosinophils Absolute Auto 0.2 X10*3/uL (0.0-0.4); Eosinophils Percent Auto 2.2 % (0-4); Hematocrit 41.4 % (37.0-47.0); Hemoglobin 14.1 g/dl (12.0-16.0); Imm Gran Abs Auto 0.04 X10*3/uL (0.00-0.03); Imm Gran Pct Auto 0.4 % (0.0-0.4); Lymphocytes Absolute Auto 2.2 X10*3/uL (1.2-4.9); Lymphocytes Percent Auto 21.4 % (20-40); Mean Corpuscular HGB Conc 34.1 g/dl (31.0-35.0); Mean Corpuscular Hemoglobin 31.8 pg (27.0-33.0); Mean Corpuscular Volume 93.5 fL (80.0-98.0); Mean Platelet Volume 10.4 fL (9.4-12.3); Monocytes Absolute Auto 0.5 X10*3/uL (0.1-1.2); Monocytes Percent Auto 4.7 % (2-11); Neutrophils Absolute Auto 7.2 x10*3/uL (2.0-8.3); Neutrophils Percent Auto 70.5 % (45-73); Platelet Count 285 X10*3/uL (160-400); Red Blood Count 4.43 X10*6/uL (4.20-5.50); Red Cell Distribution Width 12.4 % (11.0-16.0); White Blood Count 10.2 X10*3/uL (4.8-10.8)
[2024-01-23 19:18] LABS: INTERNATIONAL NORM RATIO 0.9 (0.9-1.1); Prothrombin Time 11.3 SEC (11.1-13.3)
[2024-01-23 19:36] LABS: Alanine Aminotransferase 16 U/L (0-31); Albumin Level 4.1 g/dL (3.5-5.0); Alkaline Phosphatase 54 U/L (39-117); Anion Gap 15 (12-20); Aspartate Amino Transferase 12 U/L (5-31); Bilirubin Total 0.5 mg/dL (0.0-1.0); Blood Urea Nitrogen 9 mg/dL (9-16); Calcium 9.5 mg/dL (8.4-10.2); Carbon Dioxide 22 mmol/L (22-29); Chloride 108 mmol/L (96-108); Creatinine Clr Calc Pharmacy 118.2; Estimated Glomerular Filt Rate > 60; Glucose Random 126 mg/dL (60-115); Lipase 48 U/L (8-78); Magnesium 1.8 mg/dL (1.6-2.6); Potassium 3.5 mmol/L (3.3-5.1); Sodium 141 mmol/L (135-145); Total Protein 7.2 g/dL (6.5-8.0)
[2024-01-23 19:37] LABS: HCG Quantitative < 2 mIU/mL; Troponin-I High Sensitivity < 2.7 ng/L (<3.5-17.0)
[2024-01-23 19:44] LABS: Influenza A PCR NEGATIVE (Negative); Influenza B PCR NEGATIVE (Negative); Resp Syncy Virus RNA Qual PCR NEGATIVE (Negative); SARS COV2 PCR INHOUSE NEGATIVE (Negative)
[2024-01-23 21:43] VITALS: BP 109/60; PULSE 67; RESP 17; TEMP 36.8; O2SAT 95
[2024-01-23 21:43] LABS: Troponin-I High Sensitivity < 2.7 ng/L (<3.5-17.0)
--- NOTE | 2024-01-23 22:41 | ED.CHESTPAIN ---
HPI - Chest Pain General Chief Complaint: Chest Pain Stated Complaint: chest pain Time Seen by Provider: 01/23/24 22:40 Source: patient Mode of arrival: ambulatory Limitations: no limitations History of Present Illness ED Provider: maximino GOODRICH narrative: Patient complaining of left-sided chest pain left back pain for last 3 days no nausea no vomiting no shortness of breath no cough no fever patient unable to sleep because of pain no known cardiac history no cocaine use Related Data Home Medications ?Medication ?Instructions ?Recorded ?Confirmed diazepam 10 mg tablet 10 mg PO BID 04/19/22 10/12/23 fluoxetine 40 mg capsule 40 mg PO DAILY 06/15/23 10/12/23 aripiprazole 5 mg tablet 5 mg PO DAILY 09/20/23 10/12/23 fluoxetine 20 mg capsule 20 mg PO DAILY 09/20/23 10/12/23 Previous Rx's ?Medication ?Instructions ?Recorded trazodone 50 mg tablet 50 mg PO BEDTIME PRN insomnia 30 04/19/22 days #30 tabs mupirocin 2 % topical ointment 1 appl topical TID #22 grams 10/03/22 tramadol 50 mg tablet 50 mg PO Q8H PRN severe pain 10/03/22 (scale score 7-10) #6 tabs miscellaneous medical supply 1 ea miscellaneous DAILY #1 ea 11/29/22 diphenhydramine HCl 50 mg tablet 50 mg PO BEDTIME PRN itching #30 06/15/23 (Benadryl Allergy) tabs fluticasone propionate 50 2 spray intranasal DAILY PRN for 10/12/23 mcg/actuation nasal allergies #48 mL spray,suspension ibuprofen 800 mg tablet 800 mg PO Q8H PRN pain 30 days #90 10/12/23 tabs tramadol 50 mg tablet 50 mg PO Q6H PRN pain #20 tabs 01/23/24 Allergies Allergy/AdvReac Type Severity Reaction Status Date / Time No Known Allergies Allergy Mild NOT Verified 01/23/24 18:24 APPLICABLE Review of Systems Review of Systems: Yes all other systems are reviewed and are negative PMFSH Past Medical History Medical History Insomnia Allergic rhinitis Depression Anxiety Hyperhidrosis Obesity (BMI 30-39.9) Smoker Surgical History History of bilateral tubal ligation (~09/2015) History of tonsillectomy Social History Social History Housing: Apartment Patient Tobacco Use Status: Current everyday Tobacco user Tobacco use type: Cigarette Cigarettes Per Day: 5 Smoked in Last 30 Days: Yes e-Cigarette/Vaping Use: Never Used Second Hand Smoke Exposure: Yes Use of substances other than those prescribed or required for medical reasons: No Advance Directives: No Advance Directives Information Provided: No Do you have a plan to hurt others: No Plan Patient : No service: No Current occupational status: employed Current occupation: [employer] Cognitive needs: No Hearing needs: No Vision needs: Yes Physical Exam Vital Signs: Vital Signs: Last Vital Signs Temp 98.2 F 01/23/24 23:16 Pulse 67 01/23/24 23:16 Resp 17 01/23/24 23:16 BP 109/60 01/23/24 23:16 Pulse Ox 95 01/23/24 23:16 O2 Del Method Room Air 01/23/24 23:16 BMI result Body Mass Index 31.2 Appearance: Alert. Oriented X3. No acute distress. Eyes: PERRLA, No Nystagmus ENT: Pharynx normal. Oral Mucosa moist Neck: Normal inspection. Neck supple. CVS: Normal heart rate and rhythm. Pulses normal. Respiratory: No respiratory distress. Equal air entry bilateral, no wheezing/rales/rhonchi tender left 2nd intercostal space Abdomen: Soft and nontender. Bowel sounds are present, no mass palpable, no CVA tenderness Skin: Skin warm and dry. Normal skin color. Normal skin turgor. Extremities: No lower extremity edema. No calf tenderness Neuro: Oriented X 3. No motor deficit. No sensory deficit.No cerebellar signs , cranial nerves II-XII intact Medications Administered Discontinued Medications Generic Name Dose Route Start Last Admin Trade Name Freq PRN Reason Stop Dose Admin Tramadol HCl 50 mg 01/23/24 23:06 01/23/24 23:11 Tramadol Hcl 50 Mg Tablet PO 01/23/24 23:07 50 mg ONCE ONE Administration Medical Decision Making Medical Decision Making [facility] Narrative: Patient has atypical chest pain with reproducible pain on left 2nd intercostal space 2 sets of cardiac enzymes negative low risk for CAD will discharge patient home on tramadol Differential Diagnosis Differential Diagnoses: The differential diagnosis associated with the presentation includes ACS/musculoskeletal pain/costochondritis Lab Data MDM Lab Attestation statement: I reviewed the patient's lab results. 01/23/24 18:50 01/23/24 18:50 Labs: Lab Results 01/23/24 01/23/24 Range/Units 18:50 21:15 WBC 10.2 (4.8-10.8) X10*3/uL RBC 4.43 (4.20-5.50) X10*6/uL Hgb 14.1 (12.0-16.0) g/dl Hct 41.4 (37.0-47.0) % MCV 93.5 (80.0-98.0) fL MCH 31.8 (27.0-33.0) pg MCHC 34.1 (31.0-35.0) g/dl RDW 12.4 (11.0-16.0) % Plt Count 285 (160-400) X10*3/uL MPV 10.4 (9.4-12.3) fL Immature Gran % (Auto) 0.4 (0.0-0.4) % Neut % (Auto) 70.5 (45-73) % Lymph % (Auto) 21.4 (20-40) % [place] % (Auto) 4.7 (2-11) % Eos % (Auto) 2.2 (0-4) % Baso % (Auto) 0.8 (0-2) % Lymph # (Auto) 2.2 (1.2-4.9) X10*3/uL [place] # (Auto) 0.5 (0.1-1.2) X10*3/uL Eos # (Auto) 0.2 (0.0-0.4) X10*3/uL Baso # (Auto) 0.1 (0.0-0.2) X10*3/uL Abs Immat Gran (auto) 0.04 H (0.00-0.03) X10*3/uL Absolute Neuts (auto) 7.2 (2.0-8.3) x10*3/uL Absolute Nucleated RBC 0.000 (0.0-0.012) X10*3/uL Nucleated RBC % (auto) 0.0 (0.0-0.2) /100WBC PT 11.3 (11.1-13.3) SEC INR 0.9 (0.9-1.1) Sodium 141 (135-145) mmol/L Potassium 3.5 (3.3-5.1) mmol/L Chloride 108 (96-108) mmol/L Carbon Dioxide 22 (22-29) mmol/L Anion Gap 15 (12-20) BUN 9 (9-16) mg/dL Creatinine 0.76 (0.5-1.4) mg/dL Estim Creat Clear Calc 118.2 Estimated GFR > 60 Random Glucose 126 H (60-115) mg/dL Calcium 9.5 (8.4-10.2) mg/dL Magnesium 1.8 (1.6-2.6) mg/dL Total Bilirubin 0.5 (0.0-1.0) mg/dL AST 12 (5-31) U/L ALT 16 (0-31) U/L Alkaline Phosphatase 54 (39-117) U/L Troponin I High Sens < 2.7 < 2.7 (<3.5-17.0) ng/L Total Protein 7.2 (6.5-8.0) g/dL Albumin 4.1 (3.5-5.0) g/dL Lipase 48 (8-78) U/L Beta HCG, Quant < 2 mIU/mL Influenza Type A (PCR) NEGATIVE (Negative) Influenza Type B (PCR) NEGATIVE (Negative) RSV RNA Qual (PCR) NEGATIVE (Negative) SARS-CoV-2 RNA (RT-PCR) NEGATIVE (Negative) Independent Interpretation I performed an independent interpretation of an: EKG Interpretation: Normal sinus rhythm heart rate 80 beats per minute normal interval normal axis no acute ST T wave changes no acute ischemia Discharge Plan Discharge Clinical Impression: Atypical chest pain Patient Disposition: Home, Self-Care Instructions: Chest Wall Pain (ED) Additional Instructions: Your pain is likely from inflammation of the cartilage Take tramadol for pain as advised Follow with PCP if not better Prescriptions: New tramadol 50 mg tablet 50 mg PO Q6H PRN (Reason: pain) Qty: 20 0RF No Action mupirocin 2 % ointment 1 appl topical TID Qty: 22 0RF tramadol 50 mg tablet 50 mg PO Q8H PRN (Reason: severe pain (scale score 7-10)) Qty: 6 0RF diazepam 10 mg tablet 10 mg PO BID trazodone 50 mg tablet 50 mg PO BEDTIME PRN (Reason: insomnia) 30 Days Qty: 30 1RF miscellaneous medical supply Misc 1 ea miscellaneous DAILY Qty: 1 0RF Rx Instructions: tavo wrap Benadryl Allergy 50 mg tablet 50 mg PO BEDTIME PRN (Reason: itching) Qty: 30 2RF fluoxetine 40 mg capsule 40 mg PO DAILY aripiprazole 5 mg tablet 5 mg PO DAILY fluoxetine 20 mg capsule 20 mg PO DAILY fluticasone propionate 50 mcg/actuation spray,suspension 2 spray intranasal DAILY PRN (Reason: for allergies) Qty: 48 3RF ibuprofen 800 mg tablet 800 mg PO Q8H PRN (Reason: pain) 30 Days Qty: 90 2RF Rx Instructions: Take with food Referrals: Florentino Canales MD [Primary Care Provider] - 1 Week Interventions: ED Discharge Assessment Last Done: 01/23/24 23:16 Discharge Date/Time: 01/23/24 23:17 Print Language: Maori
[2024-01-23] MEDS: traMADoL HCL 50 MG TABLET PO (23:11)
[2024-01-23 23:16] VITALS: BP 109/60; PULSE 67; RESP 17; TEMP 36.8; O2SAT 95
== END 2024-01-23 23:17 | disposition home or self-care (01) ==
PROVIDERS: Physician Assistant Medical; Emergency Provider Internal Medicine; PCP Internal Medicine
DX: R07.89 Other chest pain (principal); M54.50 Low back pain, unspecified; Z79.899 Other long term (current) drug therapy; Z03.818 Encounter for observation for suspected exposure to other biological agents ruled out
CPT/HCPCS: 0241U; 36415; 71046; 80053; 83690; 83735; 84484; 84702; 85025; 85610; 93005; 99283; 99285

== ENCOUNTER → 2024-01-23 18:07 | Outpatient (BNV) | payer OTHER, SELFPAY | PROVIDERS: Emergency Provider Internal Medicine; PCP Internal Medicine; Visit Provider Internal Medicine | DX: R07.9 Chest pain, unspecified (principal); R94.31 Abnormal electrocardiogram [ECG] [EKG] | CPT/HCPCS: 93010 ==

== ENCOUNTER 2024-01-24 09:32 | Outpatient (AMB) | payer OTHER, SELFPAY ==
[2024-01-24 09:40] VITALS: BP 104/64; BMI 30.9
--- NOTE | 2024-01-24 09:40 | MHC.OFFVIS ---
Vital Signs 01/24/24 09:40 Height 5 ft 7 in Weight 197 lb BMI 30.9 BP 104/64 Intake Visit Reasons: New patient Annual Nurses' Aide Required: No Information Interpreted: non-clinical & clinical Physical Fitness Teacher: Physical Fitness Teacher Present (Aidyn) Allergies No Known Allergies Allergy (Mild, Verified 01/24/24 09:43) NOT APPLICABLE Is last menstrual period known: No Post menopausal: No HPI Comments Details: She is a premenopausal woman presenting for a new patient annual examination. Doing well with no concerns. Seen last night in the ED for chest pain, plans to see her primary care for a follow up on the symptoms. She also reports rectal bleeding with bowel movements for the last month, no abdominal pain has not been seen for this. Works till early a.m. as a [employer], reports she eats but later in the day, active on her job walking. Regular monthly menses. Currently is not sexually active in 9 months. She denies vaginal itching and irritation. STI screening offered; she accepts cultures in the room but not blood work. Denies family history of breast, ovarian or colon cancer. Last pap smear 2013, negative. [facility] Medical History Insomnia Allergic rhinitis Depression Anxiety Hyperhidrosis Obesity (BMI 30-39.9) Smoker Surgical History History of bilateral tubal ligation (~09/2015) History of tonsillectomy Social History Housing: Apartment Patient Tobacco Use Status: Current everyday Tobacco user Tobacco use type: Cigarette Cigarettes Per Day: 3 e-Cigarette/Vaping Use: Never Used Second Hand Smoke Exposure: Yes service: No Current occupational status: employed Current occupation: [employer] Cognitive needs: No Hearing needs: No Vision needs: Yes Female Reproductive History Menstrual Age of Menarche: 17 Duration of menses: 6-7 days control method: permanent sterilization Total pregnancies: 2 Full term: 2 Number of Living Children: 2 Date of last pap smear: 01/10/14 (negative) Review of Systems Const All systems reviewed & are unremarkable except as noted in HPI and below Reports as per HPI Eyes Reports no additional complaints ENT Reports no additional complaints Card Reports no additional complaints Resp Reports no additional complaints GI Reports as per HPI and Reports no additional complaints Reports as per HPI Musc Reports no additional complaints Skin/Breast Reports as per HPI Neuro Reports no additional complaints Psych Reports no additional complaints Endo Reports no additional complaints Dewayne/Lymph Reports no additional complaints Aller/Immun Reports no additional complaints Physical Exam Vital Signs: Last Vital Signs BP 104/64 01/24/24 09:40 BMI result Body Mass Index 30.9 Const General: cooperative, healthy appearing, no acute distress, well developed and alert Orientation/consciousness: patient oriented x3 HEENT Head: Yes normal to inspection Eyes General: appearance normal, both eyes and all related structures Neck Neck: Yes normal visual inspection Thyroid: Thyroid normal Chest Chest palpation & inspection: normal inspection of the chest and other (no puckering, dimpling, peau de orange, retraction, discharge, masses) Breast/axilla inspection: normal inspection of the breasts Breast/axilla palpation: normal palpation of the breasts Resp Effort & Inspection: normal respiratory effort GI Inspection: Yes normal to inspection Palpation (GI): Soft to palpation Rectal Exam - Female: deferred General: Yes bladder normal to palpation External Female Exam: normal external appearance and normal appearance of the urethra Speculum Exam - Vagina: normal appearance of the vagina, normal palpation and normal vaginal discharge Speculum Exam - Cervix: normal appearance of the cervix, normal palpation and Other cervical findings present (Bled slightly with Pap) Bimanual exam- vagina & uterus: normal bimanual exam, normal palpation, uterine size normal, bladder normal to palpation, normal palpation and non-tender Bimanual Exam- Adnexa, other: no masses Skin General skin exam: no rashes or lesions noted Rashes: no rashes Neuro General: patient oriented x3 Cognition (Neuro): normal cognition Extrem General: Yes normal to inspection Psych Attitude: cooperative Thought process: Normal thought process present Assessment & Plan Assessment & Plan (1) Encounter for well woman exam with routine gynecological exam: Code(s): Z01.419 - Encounter for gynecological examination (general) (routine) without abnormal findings Category: Medical Plan Discussed: Current recommendations for pap smears per ASCCP guidelines. Pap smear and GC chlamydia and BV panel obtained today. Breast awareness and periodic breast exams. Maintain a healthy lifestyle including a well balanced diet and routine exercise. Use condoms for STI and prevention. Advised to see her primary care as soon as possible for the rectal bleeding, she is agreeable and said she was going to walk to his office across the complex and schedule her followups today. Patient verbalizes understanding and agrees to the plan of care. She was given opportunity to ask questions and all questions were answered to the best of my ability. RTO in one year for annual recruiting and selection consultant examination. Sign up for the patient portal today. This note is constructed using voice recognition software. While every effort has been made to ensure accuracy, frame stripper and crusher errors may have been included. Coding Level of Care Code New Pt Prev Care 18-39yr(98189 Diagnoses Encounter for well woman exam with routine gynecological exam Z01.419
== END 2024-01-24 10:11 | disposition home or self-care (01) ==
LOC: HO.HWS 09:32
PROVIDERS: PCP Internal Medicine; Visit Provider Advanced Practice Midwife
DX: Z01.419 Encounter for gynecological examination (general) (routine) without abnormal findings (principal)
CPT/HCPCS: 99385

== ENCOUNTER 2024-01-24 09:32 | Outpatient (REF) | payer OTHER, SELFPAY ==
[2024-01-24 16:12] LABS: Bacterial Vaginosis PCR NEGATIVE (Negative); Candida Group PCR NOT DETECTED (Not Detect); Candida glab krusei PCR NOT DETECTED (Not Detect); Trichomonas vaginalis PCR NOT DETECTED (Not Detect)
[2024-01-24 16:34] LABS: CT PCR NOT DETECTED (Not Detect.); NG PCR NOT DETECTED (Not Detect.)
[2024-01-31 20:44] LABS: HPV mRNA E6/E7 rflx Not Detected (Not Detected)
== END 2024-01-24 09:33 | disposition home or self-care (01) ==
LOC: HO.LNP 09:32
PROVIDERS: PCP Internal Medicine; Visit Provider Advanced Practice Midwife
DX: Z01.419 Encounter for gynecological examination (general) (routine) without abnormal findings (principal); Z20.2 Contact with and (suspected) exposure to infections with a predominantly sexual mode of transmission
CPT/HCPCS: 0352U; 0353U; 87624; 88142; 99385

== ENCOUNTER 2024-01-31 12:26 | Outpatient (AMB) | payer OTHER, SELFPAY ==
[2024-01-31 12:30] VITALS: BP 110/76; PULSE 84; O2SAT 97; BMI 30.4
--- NOTE | 2024-01-31 12:30 | A.OFFPC_ITS ---
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: No Allergies No Known Allergies Allergy (Mild, Verified 01/31/24 12:57) NOT APPLICABLE Medication List - Last Reconciled 01/31/24 by Florentino Canales MD aripiprazole 5 mg PO DAILY diazepam 10 mg PO BID fluticasone propionate 50 mcg/actuation 2 sprays intranasal DAILY PRN ibuprofen 800 mg PO Q8H PRN 30 days miscellaneous medical supply 1 ea miscellaneous DAILY trazodone 50 mg PO BEDTIME PRN 30 days Tobacco use date assessed: 10/12/23 Dental Screening Dental Screen Date: 10/12/23 HPI Left side chest pain HPI Details Patient comes in today for her HDF follow up visit She went to the ER last week for recurrent left-sided chest pains Cardiac work ups done were negative and she was reassured that her symptoms were likely due to musculoskeletal pain/costochondritis Patient now thinks that the most likely source of her on and off chest pains, which are still ongoing at present, is the thick wire on the bras that she has been wearing as she recalls that she felt a lot better when she was in a bathing suit this past weekend Reports that she has been experiencing a recurrent sensation of rectal/perianal pressure as well as on and off blood in her stool for a few weeks now - thinks that her symptoms started over a month ago Adds that she's had some loose / watery bowel movements often lately Denies any nausea/vomiting, or abdominal pain She denies any fever, headaches or dizziness Denies any SOB Would like to get a refill on her Ibuprofen 800 mg PFSH Medical History Insomnia Allergic rhinitis Depression Anxiety Hyperhidrosis Obesity (BMI 30-39.9) Smoker Surgical History History of bilateral tubal ligation (~09/2015) History of tonsillectomy Social History Housing: Apartment Patient Tobacco Use Status: Current everyday Tobacco user Tobacco use type: Cigarette Cigarettes Per Day: 3 e-Cigarette/Vaping Use: Never Used Second Hand Smoke Exposure: Yes service: No Current occupational status: employed 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 Cognitive needs: No Hearing needs: No Vision needs: Yes Female Reproductive History Menstrual Age of Menarche: 17 Questionnaire Thrive Questionnaire Date Thrive assessed: 10/12/23 I am a: Patient What is your living situation today?: I have a steady place to live Within the past 12 months, did the food you bought not last and you didn't have the money to get more?: Never true Within the past 12 months, did you worry whether your food would run out before you got money to buy more?: Never true Do you have trouble paying for medicines?: No Do you have trouble getting transportation to medical appointments?: No Do you have trouble paying your heating and electricity bill?: No Do you have trouble taking care of your child, family member or friend?: No Do you have trouble with day-to-day activities such as bathing, preparing meals, shopping, managing finances, etc.?: No Are you currently unemployed and looking for a job?: No Are you interested in more education?: No Please select the resources that you would like help with: None Currently or been in a relationship where the following occur: no concerns reported THRIVE Score: 0 AUDIT C Alcohol Use Questionnaire (AUDIT-C) 1. How often do you have a drink containing alcohol?: Never 3. How often do you have six or more drinks on one occasion?: Never Total Score: 0 Score Reviewed/Action Taken: Yes TAMERA-7 AMB Questionnaire TAMERA-7 Date TAMERA - 7 assessed: 10/12/23 Source: Developed by Drs. Emmanuel Barrera, Cheryl Arriola, Jorden Guzman and colleagues, with an educational heather from [employer]. Review of Systems Const Denies chills, Denies fatigue, Denies fever(s) and Denies headache(s) ENT Denies dysphagia, Denies dizziness, Denies otalgia, Denies headache(s), Denies neck pain, Denies odynophagia and Denies sore throat Card Reports chest pain (recurrent, over the left anterior chest wall), Denies chest pain with activity, Denies irregular heart rhythm, Denies palpitations and Denies dyspnea Resp Denies cough, Denies dyspnea and Denies wheezing GI Details: recurrent rectal/perianal pressure Denies abdominal pain, Reports hematochezia (on and off), Denies constipation, Denies dysphagia, Denies heartburn, Reports loose stools (frequent lately), Denies nausea, Denies odynophagia and Denies vomiting Denies urinary frequency, Denies dysuria, Denies urinary incontinence and Denies urinary urgency Musc Denies back pain, Denies arthralgias and Denies neck pain Skin/Breast Denies rash Neuro Denies dizziness, Denies headache(s) and Denies paresthesias Psych Denies anxiety and Denies depression Endo Denies fatigue and Denies palpitations Dewayne/Lymph Denies easy bruising Aller/Immun Denies wheezing Physical exam (Primary Care) Vital Signs: Last Vital Signs Pulse 84 01/31/24 12:30 BP 110/76 01/31/24 12:30 Pulse Ox 97 01/31/24 12:30 Oxygen Delivery Method Room Air 01/31/24 12:30 BMI result Body Mass Index 30.4 Tobacco/Smoking Status: Tobacco use Status Tobacco use date assessed 10/12/23 01/31/24 12:36 Patient Tobacco Use Status Current everyday Tobacco 01/31/24 12:36 Tobacco use type Cigarette 01/31/24 12:36 e-Cigarette/Vaping Use Never Used 01/31/24 12:36 Thrive Assessment: Date of Thrive Assessment Date Thrive assessed 10/12/23 01/31/24 12:36 Currently or been in a relationship where the following occur: no concerns reported Const General: no acute distress and alert HENMT Ears: TM's normal bilaterally and EAC's normal Throat: Yes posterior oropharynx normal and Yes tonsils normal (no TP congestion) Neck Neck: Yes no lymphadenopathy and Yes supple Thyroid: Thyroid normal Chest Other: (+) mild tenderness on deep palpation over the left chest wall, around and behind the left breast Resp Auscultation: clear to auscultation bilaterally, no rales and no wheezes Cardio Rate: regular rate Rhythm: regular rhythm Heart sounds: no murmurs GI Palpation (GI): Soft to palpation and nontender Auscultation: normal bowel sounds General: Yes no CVA tenderness Back/Spine/Pelvis Back: no CVA tenderness Thoracic/Lumbar Spine: thoracic and lumbar spine normal to inspection Skin Rashes: no rashes Extrem General: Yes no clubbing, cyanosis or edema Results Reviewed Results Reviewed: Laboratory Tests 01/23/24 18:50 WBC 10.2 Hgb 14.1 Hct 41.4 Plt Count 285 Sodium 141 Potassium 3.5 Creatinine 0.76 Estimated GFR > 60 Random Glucose 126 H Calcium 9.5 AST 12 ALT 16 Albumin 4.1 Lipase 48 Assessment and Plan Assessment & Plan (1) Rectal bleeding: Code(s): K62.5 - Hemorrhage of anus and rectum Plan: Discussed with patient that the most likely cause of her recent recurrent rectal bleeding and pressure at this time would be hemorrhoids, which can be external or internal or both Will refer her to GI [facility] for further evaluation and management Per request, will try her empirically on Anusol HC 25 mg - advised that if she can get the suppository formulation (if it is covered by insurance), that would be more effective and she is to use it BID x 2 weeks If she cannot get the suppository formulation, then the rectal cream should suffice and to be applied BID to QID x 7 to 14 days (2) Rectal pressure: Code(s): R19.8 - Other specified symptoms and signs involving the digestive system and abdomen Plan: Will refer her to GI [facility] for further evaluation and management and will likely require at least a sigmoidoscopy (3) Left-sided chest wall pain: Code(s): R07.89 - Other chest pain Plan: She is advised that this is most likely musculoskeletal in etiology, due to muscular strain or costochondritis Reassured that her cardiac work ups done at the ER last week all came back normal Patient thinks that the most likely source of her on and off chest pains, which are still ongoing at present, is the thick wire on the bras that she has been wearing lately as she recalls that she felt a lot better when she was in a ba thing suit this past weekend (4) Allergic rhinitis: Code(s): J30.9 - Allergic rhinitis, unspecified Qualifiers: Allergic rhinitis trigger: unspecified Allergic rhinitis seasonality: unspecified Qualified Code(s): J30.9 - Allergic rhinitis, unspecified Plan: Continue Fluticasone 50 mcg nasal spray QD PRN (5) Arthralgia: Code(s): M25.50 - Pain in unspecified joint Qualifiers: Joint pain location: unspecified Qualified Code(s): M25.50 - Pain in unspecified joint Plan: Continue Ibuprofen 800 mg TID with food PRN (Rx refilled) and Tramadol 50 mg TID PRN for pain (6) Insomnia: Code(s): G47.00 - Insomnia, unspecified Qualifiers: Insomnia type: unspecified Qualified Code(s): G47.00 - Insomnia, unspecified Plan: Sleep hygiene reinforced Continue Diphenhydramine 50 mg Q HS and Trazodone 50 mg Q HS PRN (Rx is being prescribed and managed by psychiatry) (7) Anxiety: Code(s): F41.9 - Anxiety disorder, unspecified Plan: Continue Diazepam 10 mg BID ([facility] Follow up with psychiatry as scheduled (8) Depression: Code(s): F32.A - Depression, unspecified Qualifiers: Depression Type: major depressive disorder Major depression recurrence: recurrent Active/Remission status: currently active Major depression episode severity: unspecified Qualified Code(s): F33.9 - Major depressive disorder, recurrent, unspecified Plan: Continue Fluoxetine 60 mg QD and Aripiprazole 5 mg QD Follow up with psychiatry as scheduled (9) Smoker: Code(s): F17.200 - Nicotine dependence, unspecified, uncomplicated Plan: Counseled again on smoking cessation (10) Obesity (BMI 30-39.9): Code(s): E66.9 - Obesity, unspecified Plan: Reinforced diet/exercise as tolerated/lose weight Plan Follow up in 4 months Orders: Referrals Gastroenterology Referral K62.5 - Hemorrhage of anus and rectum, R19.8 - Other specified symptoms and signs involving the digestive system and abdomen Medications: New hydrocortisone 2.5% (Anusol-HC) 1 appl MS BID-QID PRN 30 grams 1RF hemorrhoids hydrocortisone acetate (Anusol-HC) 25 mg MS BID 2 weeks 28 ea 0RF K62.5 - Hemorrhage of anus and rectum, K64.9 - Unspecified hemorrhoids Refilled ibuprofen Take with food 800 mg PO Q8H 30 days PRN 90 tabs 2RF pain Coding Level of Care Code Est Pt Level 4 (36584) Diagnoses Rectal bleeding K62.5 Rectal pressure R19.8 Left-sided chest wall pain R07.89 Allergic rhinitis, unspecified seasonality, unspecified trigger J30.9 Allergic rhinitis trigger: unspecified Allergic rhinitis seasonality: unspecified Arthralgia, unspecified joint M25.50 Joint pain location: unspecified Insomnia, unspecified type G47.00 Insomnia type: unspecified Anxiety F41.9 Episode of recurrent major depressive disorder, unspecified depression episode severity F33.9 Depression Type: major depressive disorder Major depression recurrence: recurrent Active/Remission status: currently active Major depression episode severity: unspecified Smoker F17.200 Obesity (BMI 30-39.9) E66.9
== END 2024-01-31 13:03 | disposition home or self-care (01) ==
PROVIDERS: PCP Internal Medicine; Visit Provider Internal Medicine
DX: K62.5 Hemorrhage of anus and rectum (principal); R19.8 Other specified symptoms and signs involving the digestive system and abdomen; R07.89 Other chest pain; J30.9 Allergic rhinitis, unspecified; M25.50 Pain in unspecified joint; G47.00 Insomnia, unspecified; F41.9 Anxiety disorder, unspecified; F17.200 Nicotine dependence, unspecified, uncomplicated
CPT/HCPCS: 99214

== ENCOUNTER 2024-04-03 13:20 | Outpatient (AMB) | payer OTHER, SELFPAY ==
--- NOTE | 2024-04-03 13:25 | A.OFFVIS_ITS ---
Vital Signs 04/03/24 13:26 Height 5 ft 7 in Weight 194 lb 0.108 oz BMI 30.4 BP 116/68 Blood Pressure Location Lt brachial Position Sitting Pulse 80 Intake Visit Reasons: Rectal Hemorrhaging Intake Note: Lisa presents in the office as a new patient for Rectal Hemorrhaging. CC: She states that she has her period at the moment. She has the pressure and pain in her rectum. She states that she does not haved irregular bowel movements but she only has soft stools not hard stools. She is not aware if she has hemorrhoids or not but she was given the cream - hydrocortisone but it was not working for her. Allergies No Known Allergies Allergy (Mild, Verified 04/03/24 13:29) NOT APPLICABLE HPI Comments Details: 38 y.o F who is here for intermittent rectal bleeding. Reports onset almost 3 months ago. Thinks possibly was straining when this initially started but since then even when stools are soft and pt not straning she notices blood on wiping. With this also noticing some rectal pressure. DOes not report hx of anal trauma or intercourse. No abd pain, N,V. No unintentional weight loss. 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 Cognitive needs: No Hearing needs: No Vision needs: Yes Female Reproductive History Menstrual Age of Menarche: 17 Review of Systems Const All systems reviewed & are unremarkable except as noted in HPI and below Physical Exam Vital Signs: Last Vital Signs Pulse 80 04/03/24 13:26 BP 116/68 04/03/24 13:26 BMI result Body Mass Index 30.4 No apparent distress Nonicteric Abdomen soft, nondistended rectal with internal hemorrhoids with mild prolapse Alert and oriented x3, normal gait Assessment & Plan Assessment & Plan (1) Rectal pressure: Code(s): R19.8 - Other specified symptoms and signs involving the digestive system and abdomen Category: Medical (2) Rectal bleeding: Code(s): K62.5 - Hemorrhage of anus and rectum Category: Medical (3) Hemorrhoids: Code(s): K64.9 - Unspecified hemorrhoids Category: Medical Plan Likely 2/2 hemorrhoids as noted. However, pt mentions bleeding even with soft stool without straining and has also been noticing rectal pressure. Will proceed with flex sig to r/o other etiology such as SURS, large friable polyps, proctitis etc. Plan: - Avoid constipation and straining. Can take OTC senna or miralax to manage constipation. - avoid lifting heavy weights - increase hydration and fiber intake - anusol supp x 7-10 days - can use tucks sparingly - avoid aggressive wiping, use water to clean - Flex sig to be booked Follow up after flex sig Medications: New hydrocortisone acetate (Anusol-HC) 25 mg [place] BEDTIME 12 ea 0RF psyllium husk mix into at least 8 oz of water or juice before administering 1 tbsp PO DAILY 480 grams 0RF witch jake 50% (Tucks (witch jake)) 2 pad topical DAILY 40 ea 0RF 7 days Patient Instructions: - Drink plenty of fluids - Take fiber 1 tbsp mixed in a cup of water daily - Take miralax 17g mixed in a cup of water IF constipated - Sitz baths - Steroid supp daily at night for 7-10 nights - Use tucks pads - Avoid aggressive wiping, use gabi bottles to wash and then pat dry. Coding Level of Care Code New Pt Level 4 (12187) Diagnoses Rectal pressure R19.8 Rectal bleeding K62.5 Hemorrhoids K64.9
[2024-04-03 13:26] VITALS: BP 116/68; PULSE 80; BMI 30.4
== END 2024-04-03 13:57 | disposition home or self-care (01) ==
PROVIDERS: PCP Internal Medicine; Visit Provider Internal Medicine
DX: R19.8 Other specified symptoms and signs involving the digestive system and abdomen (principal); K62.5 Hemorrhage of anus and rectum; K64.9 Unspecified hemorrhoids
CPT/HCPCS: 99204

== ENCOUNTER → 2024-04-03 13:20 | Outpatient (BNVA) | payer OTHER, SELFPAY | PROVIDERS: PCP Internal Medicine; Visit Provider Internal Medicine | DX: R19.8 Other specified symptoms and signs involving the digestive system and abdomen (principal); K62.5 Hemorrhage of anus and rectum; K64.9 Unspecified hemorrhoids | CPT/HCPCS: 99202 ==

== ENCOUNTER 2024-07-31 11:23 | Outpatient (AMB) | payer OTHER, SELFPAY ==
[2024-07-31 11:36] VITALS: BMI 31.4
--- NOTE | 2024-07-31 11:36 | MHC.OFFVIS ---
Vital Signs 07/31/24 11:36 Height 5 ft 7 in Weight 200 lb 9.93 oz BMI 31.4 BMI Reason not done Patient refused/unable Position Sitting Intake Visit Reasons: Diarrhea Intake Note: Lisa presents in the office as a follow up for diarrhea. CC: She states that she is having pressure like she is on her last contraction during . She states that she is not having blood but she states that it feels like her rectum is pushing out. She states that she never has a hard stool and she states that when she has anxiety she gets an itchy feeling and her skin is coming off. She takes ibuprofen but she states that nothing is working and she is not leaving today until the pain is gone. Allergies No Known Allergies Allergy (Mild, Verified 07/31/24 11:39) NOT APPLICABLE HPI Comments Details: 38 y.o F who is here for intermittent rectal bleeding. Reports onset almost 3 months ago. Thinks possibly was straining when this initially started but since then even when stools are soft and pt not straning she notices blood on wiping. With this also noticing some rectal pressure. DOes not report hx of anal trauma or intercourse. No abd pain, N,V. No unintentional weight loss. 07/31/24: Here for follow up. Was supposed to have flex sig 07/16 which had to be rescheduled. Continues to have rectal pressure since she was last seen. Pain is severe enough where she is unabke to sit for a prolonged time. Feels that hemorrhoids have prolapsed even further. Quite upset at procedure being rescheduled from 07/16 (there was limited anesthesia availability for that day, and procedures had to be moved to a different date). [facility] Medical History Insomnia Allergic rhinitis Depression Anxiety Hyperhidrosis Obesity (BMI 30-39.9) Smoker Surgical History History of bilateral tubal ligation (~09/2015) History of tonsillectomy Family History (Updated 04/03/24 @ 13:29 by LIAM Mcallister) Family/Other Colon cancer Social History Housing: Apartment Patient Tobacco Use Status: Current everyday Tobacco user Tobacco use type: Cigarette Cigarettes Per Day: 3 e-Cigarette/Vaping Use: Never Used Second Hand Smoke Exposure: Yes service: No Current occupational status: employed 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 Cognitive needs: No Hearing needs: No Vision needs: Yes Female Reproductive History Menstrual Age of Menarche: 17 Review of Systems Const All systems reviewed & are unremarkable except as noted in HPI and below Physical Exam Vital Signs: BMI result Body Mass Index 31.4 No apparent distress Nonicteric Abdomen soft, nondistended Alert and oriented x3, normal gait Assessment & Plan Assessment & Plan (1) Rectal pressure: Code(s): R19.8 - Other specified symptoms and signs involving the digestive system and abdomen Category: Medical (2) Rectal bleeding: Code(s): K62.5 - Hemorrhage of anus and rectum Category: Medical (3) Hemorrhoids: Code(s): K64.9 - Unspecified hemorrhoids Category: Medical Plan Likely 2/2 hemorrhoids as noted. However, pt with increasing rectal pressure and pain. Flex sig as planned to r/o other etiology such as SURS, large friable polyps, proctitis etc. Plan: - Donut pillow - Avoid constipation and straining. Can take OTC senna or miralax to manage constipation. - avoid lifting heavy weights - Can redo another course of anusol x 7-10 days - avoid aggressive wiping, use water to clean - Flex sig -- CLD the day before. 1 enema at home (night before if AM procedure, 2h before if PM procedure) and then repeat enema in pre-op. Follow up after flex sig Medications: New Donut pillow As directed 1 ea 0RF acetaminophen (Tylenol Extra Strength) 500 mg PO TID PRN 60 tabs 0RF pain sodium phosphates 19-7 gram/118 mL (Fleet Enema) for prep for sigmoidoscopy 118 mL OR ONCE 133 mL 0RF constipation Coding Level of Care Code Est Pt Level 4 (71031) Diagnoses Rectal pressure R19.8 Rectal bleeding K62.5 Hemorrhoids K64.9
== END 2024-07-31 12:46 | disposition home or self-care (01) ==
PROVIDERS: PCP Internal Medicine; Visit Provider Internal Medicine
DX: R19.8 Other specified symptoms and signs involving the digestive system and abdomen (principal); K62.5 Hemorrhage of anus and rectum; K64.9 Unspecified hemorrhoids
CPT/HCPCS: 99214

== ENCOUNTER → 2024-07-31 11:23 | Outpatient (BNVA) | payer OTHER, SELFPAY | PROVIDERS: PCP Internal Medicine; Visit Provider Internal Medicine | DX: R19.8 Other specified symptoms and signs involving the digestive system and abdomen (principal); K62.5 Hemorrhage of anus and rectum; K64.9 Unspecified hemorrhoids | CPT/HCPCS: 99212 ==

== ENCOUNTER 2024-08-19 12:18 | Day surgery (SDC) | payer OTHER, SELFPAY ==
--- NOTE | 2024-08-15 12:07 | P.CONAN_ITS ---
Documented by User: Bess Kim NP 08/15/24 12:07 HPI - Anesthesia Eval Consult details Narrative: 39yo F for Sigmoidoscopy Flexible PMFSH Active Problems Active Problems: All Active Problems Hemorrhoids (Acute) Left-sided chest wall pain (Acute) Rectal pressure (Acute) Rectal bleeding (Acute) Encounter for well woman exam with routine gynecological exam (Acute) Cervical cancer screening (Acute) Skin lesions (Acute) Increased urinary frequency (Acute) Scabies (Acute) Left knee pain (Acute) Arthralgia (Acute) Insomnia (Acute) Allergic rhinitis (Acute) Depression (Acute) Anxiety (Acute) Obesity (BMI 30-39.9) (Acute) Smoker (Acute) Recurrent cough (Acute) Annual physical exam (Acute) Neck pain (Acute) Skin abscess (Acute) Past Medical History Medical History Insomnia Allergic rhinitis Depression Anxiety Hyperhidrosis Obesity (BMI 30-39.9) Smoker Family History Family History Family/Other Colon cancer Surgical History Surgical History History of bilateral tubal ligation (~09/2015) History of tonsillectomy Social History Social History Housing: Apartment Patient Tobacco Use Status: Current everyday Tobacco user Tobacco use type: Cigarette Cigarettes Per Day: 5 e-Cigarette/Vaping Use: Never Used Second Hand Smoke Exposure: Yes Use of substances other than those prescribed or required for medical reasons: Yes Substance Use Type Other:: smoked-last used 1/5 Substance Use Frequency: Daily Are you DNR?: No Advance Directives: No Advance Directives Information Provided: Yes service: No Current occupational status: employed 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 Cognitive needs: No Hearing needs: No Vision needs: Yes Meds Allergies Allergy/AdvReac Type Severity Reaction Status Date / Time No Known Allergies Allergy Mild NOT Verified 07/31/24 11:39 APPLICABLE Home Medications ?Medication ?Instructions ?Recorded ?Confirmed ?Last Taken ?Type diazepam 10 mg tablet 10 mg PO BID 08/19/24 08/19/24 Unknown History fluoxetine 20 mg capsule 20 mg PO DAILY 08/19/24 08/19/24 Unknown History Assessment and Plan Assessment Anesthesia Assessment: Chart Reviewed Documented by User: Zarina Ruiz MD 08/19/24 14:12 PMFSH Past Medical History Medical History Insomnia Allergic rhinitis Depression Anxiety Hyperhidrosis Obesity (BMI 30-39.9) Smoker Family History Family History Family/Other Colon cancer Surgical History Surgical History History of bilateral tubal ligation (~09/2015) History of tonsillectomy History of Problems with Anesthesia: No Social History Social History Housing: Apartment Patient Tobacco Use Status: Current everyday Tobacco user Tobacco use type: Cigarette Cigarettes Per Day: 5 e-Cigarette/Vaping Use: Never Used Second Hand Smoke Exposure: Yes Use of substances other than those prescribed or required for medical reasons: Yes Substance Use Type Other:: smoked-last used 1/5 Substance Use Frequency: Daily Are you DNR?: No Advance Directives: No Advance Directives Information Provided: Yes service: No Current occupational status: employed 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 Cognitive needs: No Hearing needs: No Vision needs: Yes Meds Allergies Allergy/AdvReac Type Severity Reaction Status Date / Time No Known Allergies Allergy Mild NOT Verified 07/31/24 11:39 APPLICABLE Home Medications ?Medication ?Instructions ?Recorded ?Confirmed ?Last Taken ?Type diazepam 10 mg tablet 10 mg PO BID 08/19/24 08/19/24 Unknown History fluoxetine 20 mg capsule 20 mg PO DAILY 08/19/24 08/19/24 Unknown History Exam Airway Mallampati Class: II TM Dist: >3cm Neck ROM: Full Loose/Missing/Broken Teeth: No Heart: RRR Lungs: CTA Assessment and Plan Assessment Anesthesia Assessment: Anesthesia Plan Discussed Final Anesthetic Review History of Problems with Anesthesia: No NPO: Yes ASA Class: II Final Preanesthetic Review: Meds/Allgs Chart Reviewed, Consent Obtained/Reviewed and Anes Risks/Benef Reviewed Patient Risk: Low Procedure Risk: Low Anesthetic Plan Anesthetic Plan: MAC: Disposition: Standard PACU
[2024-08-19 13:03] VITALS: BMI 30.2
[2024-08-19] MEDS: Sodium Phosphate,Mono-Dibasic 133 ML ENEMA PR (13:09)
[2024-08-19 13:21] VITALS: BP 91/63; PULSE 78; RESP 15; TEMP 36.4; O2SAT 98
[2024-08-19] MEDS: Lactated Ringers 1,000 ML 100 ML IVCONT (13:39)
--- NOTE | 2024-08-19 14:22 | MHC.SHP ---
Pre-Procedural Eval Section A - 24 Hr Update-Section A only Date of Service: 08/19/24 The patient is an INPATIENT: No The patient has been examined within 24 hours of the surgical procedure. The History & Physical has been completed within 30 days and I have reviewed it.: Yes Section B - Complete if H&P > 30 days Chief Complaint: Hemorrhage of anus and rectum Allergies: Allergies Allergy/AdvReac Type Severity Reaction Status Date / Time No Known Allergies Allergy Mild NOT Verified 07/31/24 11:39 APPLICABLE Plan Diagnosis/Plan: Unchanged I have reviewed the history and physical and performed a pertinent physical examination on my patient. No changes have occurred unless specified. Time Spent With Patient Time: Total time managing care of this patient today ____ minutes.
--- NOTE | 2024-08-19 14:41 | HO.OPN-COLON ---
Colonoscopy Operative Note Operative Note Date of Service: 08/19/24 Narrative: Procedure: Flexible sigmoidoscopy Indication: Rectal bleeding and pressure Endoscopist: Minerva Stratton MD Anesthesia Provider: Dr Ashley Ruiz Anesthesia type: MAC Instrument: Olympus [id number] Consent: Indication, risks vs benefits, and alternatives were discussed with the patient who gave written informed consent to proceed. EKG, pulse, pulse oximetry and blood pressure were monitored throughout the procedure. Please see anesthesia flowsheet. Procedure: The patient was brought to the procedure room and placed in the left lateral decubitus position. IV medications were administered by the anesthesia provider in attendance. A digital rectal exam was performed which was abnormal due to finding of hemorrhoids. The scope was then inserted through the anus and advanced through the colon to sigmoid colon at 40 cm until solid stool was encountered. Mucosa was carefully examined under high definition white light as the instrument was slowly withdrawn in a retrograde panoramic fashion. Retroflexion was performed in rectum. The procedure was not difficult. There were no immediate obvious complications. Limitations: No limitations. Findings: Mucosa: Normal to the extent examined. Protruding lesions: 1 sessile polyp of size 7 mm in sigmoid colon. Cold snare polypectomy was performed. The polyp was completely removed and retrieved. Medium internal hemorrhoids without stigmata of recent bleeding. Impression: 1. Normal colon mucosa on left side 2. One polyp removed 3. External and internal hemorrhoids Recommendations: - Follow path results. - Colonoscopy in 5-7 years if this is an adenoma, otherwise at 47 y.o - No proctitis or stigmata of hemorrhoidal bleeding. Consider Ob-PROPAGATOR LABORER referral for pelvic pressure, pt also with heavy menstrual bleeding.
[2024-08-19 14:45] VITALS: BP 84/44; PULSE 69; RESP 18; TEMP 36.6
[2024-08-19 15:00] VITALS: BP 87/43; PULSE 75; RESP 18; O2SAT 98
[2024-08-19 15:14] VITALS: BP 96/59; PULSE 65; RESP 18; O2SAT 98
[2024-08-19 15:28] VITALS: BP 93/61; PULSE 61; RESP 20; TEMP 37.6; O2SAT 98
== END 2024-08-19 15:45 | disposition home or self-care (01) ==
PROVIDERS: PCP Internal Medicine; Visit Provider Internal Medicine
PROC: 0DJD8ZZ Inspection of Lower Intestinal Tract, Via Natural or Artificial Opening Endoscopic (ICD-10-PCS; CPT 45330; principal; 2024-08-19 14:10)
DX: K63.5 Polyp of colon (principal); K64.8 Other hemorrhoids; K64.4 Residual hemorrhoidal skin tags; R19.8 Other specified symptoms and signs involving the digestive system and abdomen; Z80.0 Family history of malignant neoplasm of digestive organs; F17.210 Nicotine dependence, cigarettes, uncomplicated
CPT/HCPCS: 45338; 88305; J2003; J2704

== ENCOUNTER → 2024-08-19 12:18 | Outpatient (BNV) | payer OTHER, SELFPAY | PROVIDERS: PCP Internal Medicine; Visit Provider Internal Medicine | DX: K63.5 Polyp of colon (principal); K62.5 Hemorrhage of anus and rectum; K62.89 Other specified diseases of anus and rectum; K64.8 Other hemorrhoids | CPT/HCPCS: 45338 ==

== ENCOUNTER 2024-10-09 11:49 | Outpatient (AMB) | payer OTHER, SELFPAY ==
--- NOTE | 2024-10-09 11:50 | MHC.OFFVIS ---
Vital Signs 10/09/24 11:53 Weight 194 lb 0.108 oz BP 115/81 Blood Pressure Location Lt brachial Position Sitting Pulse 91 Intake Visit Reasons: S/P Flex Sig. Intake Note: Lisa presents in the office as a follow up Sigmoid Flex. CC: She states that she wants a second opinion if nothing can be solved. She states that she needs to be given something for the pain she feels like she is not having any changes. She states that she is having pains in her rectum she states it feels like she is ready to give constantly. Shellfish Meat Separator Operator Required: No Allergies No Known Allergies Allergy (Mild, Verified 10/09/24 11:53) NOT APPLICABLE HPI Comments Details: 38 y.o F who is here for intermittent rectal bleeding. Reports onset almost 3 months ago. Thinks possibly was straining when this initially started but since then even when stools are soft and pt not straning she notices blood on wiping. With this also noticing some rectal pressure. DOes not report hx of anal trauma or intercourse. No abd pain, N,V. No unintentional weight loss. 07/31/24: Here for follow up. Was supposed to have flex sig 07/16 which had to be rescheduled. Continues to have rectal pressure since she was last seen. Pain is severe enough where she is unabke to sit for a prolonged time. Feels that hemorrhoids have prolapsed even further. Quite upset at procedure being rescheduled from 07/16 (there was limited anesthesia availability for that day, and procedures had to be moved to a different date). 08/19/24: 1. Normal colon mucosa on left side 2. One polyp removed 3. External and internal hemorrhoids Recommendations: - Follow path results. - Colonoscopy in 5-7 years if this is an adenoma, otherwise at 47 y.o - No proctitis or stigmata of hemorrhoidal bleeding. Consider Ob-FLIGHT ATTENDANT referral for pelvic pressure, pt also with heavy menstrual bleeding. 10/09/24: Here for follow-up after flexible sigmoidoscopy. Accompanied by her neighbor. Patient quite overwhelmed during this visit, and chief complaint ranges from from rectal pressure to sharp pain during defecation to pain on sitting/driving the car. Patient also continues to use preparation H without any improvement. She had previously described heavy menstrual bleeding and pelvic pressure, but declined to be booked with OBGYN when their office had called. Today, patient reports that she never had pelvic pressure or menorrhagia. 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 Small ext hemorrhoid and anal tag noted Alert and oriented x3, normal gait Derm: scarring frm previus folliculitis vs HS noted. One healing lesion noted as well. Assessment & Plan Assessment & Plan (1) Anal pain: Code(s): K62.89 - Other specified diseases of anus and rectum Category: Medical (2) Pelvic pain: Code(s): R10.2 - Pelvic and perineal pain Category: Medical (3) Rectal pressure: Code(s): R19.8 - Other specified symptoms and signs involving the digestive system and abdomen Category: Medical (4) Folliculitis: Code(s): L73.9 - Follicular disorder, unspecified Plan 1. Anal pain/rectal pain 2. Folliculitis vs HS on buttocks Reviewed with the patient that based on her description, can not rule out anal fissure. Again, digital exam not done as per her request ( do not want anyone going up my ahole). 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 Plan: - Topical nitroglycerin and lidocaine Rxed x 4 weeks - Surg referral placed for high def anoscopy - Pelvic floor PT referral placed - If no anal fissure, or if pain present despite resolution of anal fissure, low threshold for ARMS for assessment of resting anal tone and sphincter pressures - Hibiclens Rxed for HS vs folliculitis. Pt also advised to see Derm. Follow up 4 weeks Orders: Referrals Pelvic Roll Dough Divider Referral K62.89 - Other specified diseases of anus and rectum General Surgery Referral K62.89 - Other specified diseases of anus and rectum Medications: New nitroglycerin 0.4%(w/w) 1 inch TN BID 30 grams 1RF lidocaine 5% 1 appl topical BID 30 grams 0RF chlorhexidine gluconate 4% (Hibiclens) 1 appl topical ONCE 10 days 236 mL 0RF Coding Level of Care Code Est Pt Level 4 (11145) Diagnoses Anal pain K62.89 Pelvic pain R10.2 Rectal pressure R19.8 Folliculitis L73.9
[2024-10-09 11:53] VITALS: BP 115/81; PULSE 91
--- OUTSIDE RECORDS SUMMARY | 2024-10-09 14:52 | XMS_ITS | Encounter Summary ---
Demographics Address [address] [place] [address] Home Phone Work Phone Mobile Phone Preferred Language en Marital Status Single Anglican Affiliation Unknown Race White Ethnic Group or Author Organization [employer] [facility] Address [address] [place] [address] Care Team Providers Care Merchandising Internship Name Role Phone Unavailable Primary Care Provider Unavailabl e Encounter Details Date Type Department Care Team (Latest Contact Info) Description 05/18/2022 Abstract C CONVERSIONS Dental, Provider, DDS Social History Tobacco Use Types Packs/Day Years Used Date Smoking Tobacco: Never Assessed Comments Unknown Sex and Gender Information Value Date Recorded Sex Assigned at Female 06/13/2022 10:16 AM EDT Legal Sex Female 10:16 AM EDT Gender Identity Female 06/13/2022 10:16 AM EDT Sexual Orientation Choose not to disclose 2021 10:16 AM EDT documented as of this encounter Plan of Treatment Not on file documented as of this encounter Visit Diagnoses Not on filedocumented in this encounter
--- OUTSIDE RECORDS SUMMARY | 2024-10-09 14:52 | XMS_ITS | Clinical Summary ---
Demographics Address [address] [place] [address] Home Phone Work Phone Mobile Phone Preferred Language en Marital Status Single Orthodox Affiliation Unknown Race White Ethnic Group or Author Organization [facility] [facility] Address [address] [place] [address] Care Team Providers Care Security Solutions Engineer Name Role Phone Unavailable Primary Care Provider Unavailabl e Allergies No known active allergies Medications chlorhexidine (Peridex) 0.12 % solution Swish 15 mL morning and night for 1 minute. Spit, do not swallow. Do not eat or drink for 30 minutes following use. 473 mL 4 Active Sod Fluoride-Potass ium Nitrate 1.1-5 % paste Bishop teeth for 2 minutes, morning and night. Spit, do not rinse. Do not eat or drink anything for 30 minutes following brushing. 112 g 3 4 Active Denta 5000 Plus 1.1 % cream APPLY 1 MG TO TEETH 3 TIMES DAILY. 153 g 4 Active Active Problems Problem Noted Date Diagnosed Date Retained dental root 09/29/2023 Social History Tobacco Use Types Packs/Day Years Used Date Smoking Tobacco: Never Smokeless Tobacco: Never Tobacco Cessation:Counseling Given: Not Answered Alcohol Use Standard Drinks/Week Comments Defer 0 (1 standard drink = 0.6 oz pur e alcohol) Comments Unknown Sex and Gender Information Value Date Recorded Sex Assigned at Female 06/13/2022 10:16 AM EDT Legal Sex Female 10:16 AM EDT Gender Identity Female 06/13/2022 10:16 AM EDT Sexual Orientation Choose not to disclose 2021 10:16 AM EDT Last Filed Vital Signs Vital Sign Reading Time Taken Comments Blood Pressure 122/78 11/14/2023 10:03 AM EDT Pulse - - Temperature - - Respiratory Rate - - Oxygen Saturation - - Inhaled Oxygen Concentration - - Weight - - Height - - Body Mass Index - - Plan of Treatment Health Maintenance Due Date Last Done Comments Depression Screening 1987 HIV Screening 1987 SDOH Screening 1987 Alcohol/Substance Use Screening 1999 Family Planning (PISQ) 2002 Hepatitis C Screening 2005 DTaP/Tdap/Td Vaccines (1 - Tdap) 2006 Hepatitis B Vaccines (1 of 3 - 19+ 3-dose series) 2006 Pap Smear 2008 Cervical Cancer Screening 2017 HPV/Cotest 2017 COVID-19 Vaccine ( season) 2024 Influenza Vaccine (#1) 2024 Dental Oral Exam 05/16/2024 11/14/2023, 12/2021, 07/19/2019, Additional history exists Dental Prophylaxis 05/16/2024 11/14/2023, 0 11/14/2023, 05/18/2022, Additional history exists Dental X-Ray: Bitewings 11/14/2024 11/14/19 24, 09/05/2023, 05/18/2022, Additional history exists Tobacco Screening 02/08/2025 02/09/2024 Dental X-Ray: Full Mouth 11/14/2026 024, 07/19/2019, 12/22/2010 Zoster Vaccines (1 of 2) 2037 RSV Patients and Patients Aged 60 years or older (1 - 1-dose 75+ series) 2062 HIB Vaccines Aged Out No longer eligi ble based on patient's age to complete this topic HPV Vaccines Aged Out No longer eligi ble based on patient's age to complete this topic Hepatitis A Vaccines Aged Out No long er eligible based on patient's age to complete this topic IPV Vaccines Aged Out No longer eligi ble based on patient's age to complete this topic Meningococcal Vaccine Aged Out No bronwyn danial eligible based on patient's age to complete this topic Pneumococcal Vaccine: Pediatrics (0 to 5 Years) and At-Risk Patients (6 to 49) Years) Aged Out No longer eligible based on patient's age to complete this topic RSV under 20 months Aged Out No longe r eligible based on patient's age to complete this topic Rotavirus Vaccines Aged Out No longer eligible based on patient's age to complete this topic Procedures Procedure Name Priority Date/Time Associated Diagnosis Comments PROPHYLAXIS - ADULT Routine 11/14/2023 9 :00 AM EDT Dental plaque Dental calculus Encounter for dental examination Dental caries Teeth missing INTRAORAL - COMPLETE SERIES OF RADIOGRAPHIC IMAGES Routine 11/14/2023 9:00 AM EDT Dental plaque Dental calculus Encounter for dental examination Dental caries Teeth missing PERIODIC ORAL EVALUATION - ESTABLISHED PATIENT Routine 11/14/2023 9:00 AM EDT Dental plaque Dental calculus Encounter for dental examination Dental caries Teeth missing from Last 3 Months or Most Recently Relevant to Health Maintenance Insurance * Guarantor: Lisa Crane I Account Type Relation to Patient Date of Phone Billing Address Dental Self 1985 [address] [place] [id number] [facility] MEDICAID STAND ADULT * Guarantor: Lisa Crane I Account Type Relation to Patient Date of Phone Billing Address Personal/Family Self [address] [place] [address] * Guarantor: Lisa Crane I Account Type Relation to Patient Date of Phone Billing Address Personal/Family Self 1985 [address] [place] [address] [address] [place] [address] [address] [place] [address]
--- OUTSIDE RECORDS SUMMARY | 2024-10-09 14:52 | XMS_ITS | Encounter Summary ---
Demographics Address [address] [place] [address] Home Phone Work Phone Mobile Phone Preferred Language en Marital Status Single Church Affiliation Unknown Race White Ethnic Group or Author Organization [employer] [facility] Address [address] [place] [address] Care Team Providers Care Generator Technician Name Role Phone Unavailable Primary Care Provider Unavailabl e Encounter Details Date Type Department Care Team (Latest Contact Info) Description 07/19/2019 Abstract C CONVERSIONS Dental, Provider, DDS Social [...]
--- OUTSIDE RECORDS SUMMARY | 2024-10-09 14:52 | XMS_ITS | Encounter Summary ---
Demographics Address [address] [facility] [address] [place] [address] Home Phone Work Phone Mobile Phone Preferred Language en Marital Status Single Adventist Affiliation Unknown Race White Ethnic Group or Author Organization [employer] [facility] Address [address] [place] [address] Care Team Providers Care Tobacco Sweeper Name Role Phone Unavailable Primary Care Provider Unavailabl e Reason for Visit * Reason Onset Date Comments medication 10/26/2023 Encounter Details Date Type Department Care Team (Late st Contact Info) Description 10/26/2023 Telephone [facility] [address] [place], [place] [phone] Lion Lim DDS [address] [place], [place] [phone] medication Social History Tobacco Use Types Packs/Day Years Used Date Smoking Tobacco: Never Smokeless Tobacco: Never Alcohol Use Standard Drinks/Week Comments Defer 0 (1 standard drink = 0.6 oz pur e alcohol) Comments Unknown Sex and Gender Information Value Date Recorded Sex Assigned at Female 06/13/2022 10:16 AM EDT Legal Sex Female 10:16 AM EDT Gender Identity Female 06/13/2022 10:16 AM EDT Sexual Orientation Choose not to disclose 2021 10:16 AM EDT documented as of this encounter Miscellaneous Notes * Telephone Encounter - Carolann Berrios - 10/26/2023 10:44 AM EDT Patient states that medication was sent to the pharmacy but that she also wants ibuprofen 800 and tylenol to be sent as well DR documented in this encounter Plan of Treatment Not on file documented as of this encounter Visit Diagnoses Not on filedocumented in this encounter
--- OUTSIDE RECORDS SUMMARY | 2024-10-09 14:52 | XMS_ITS | Clinical Summary ---
Author Organization [facility] it[facility] Address [address] [place] [address] Care Team Providers Care Online Marketing Strategist Name Role Phone Florentino Canales MD Primary Care Provider Surgical History Surgery Date Site/Laterality Comments TONSILLECTOMY PROCEDURE: HISTORICAL TONSILLECTOMY Medical History Medical History Date Comments Anxiety DX:Anxiety Depression DX:Depression Family History Medical History Relation Name Comments Diabetes Father Diabetes Mother Hypertension Mother Hyperthyroidism Mother Relation Name Status Comments Father Alive Mother Alive Social History Tobacco Use Types Packs/Day Years Used Date Smoking Tobacco: Every Day Smokeless Tobacco: Never Alcohol Use Standard Drinks/Week Comments No 0 (1 standard drink = 0.6 oz pur e alcohol) Comments Unknown Sex and Gender Information Value Date Recorded Sex Assigned at Not on file Legal Sex Female 9:55 AM EST Gender Identity Not on file Sexual Orientation Not on file Obstetrics History Plan of Treatment Health Maintenance Due Date Last Done Comments DTaP,Tdap,and Td Vaccines (1 - Tdap) 2006 Hepatitis B Vaccines (1 of 3 - 19+ 3-dose series) 2006 Cervical Cancer Screening: P ap Smear 2008 COVID-19 Vaccine ( - 2023-2 5 season) 2024 Influenza Vaccine (#1) 2024 HIB Vaccines Aged Out No longer eligi [...] on patient's age to complete this topic MMR Vaccines Aged Out No longer eligi ble based on patient's age to complete this topic Meningococcal ACWY Vaccine Aged Out N o longer eligible based on patient's age to complete this topic Meningococcal B Vacine Aged Out No lo nger eligible based on patient's age to complete this topic Pneumococcal Vaccine: Pediat rics (0 to 5 Years) and At-Risk Patients (6 to 64 Years) Aged Out No longer eligible b ased on patient's age to complete this topic RSV Immunization Patients Un alexa 20 months Aged Out No longer eligible b ased on patient's age to complete this topic Varicella Vaccines Aged Out No longer eligible based on patient's age to complete this topic Care Teams Online Marketing Strategist Relationship Specialty Start Date End Date Florentino Canales MD [address] [place] [address] Dr [address] [place], [place] PCP - General Internal Medicine 03/28/19
--- OUTSIDE RECORDS SUMMARY | 2024-10-09 14:52 | XMS_ITS | Encounter Summary ---
Demographics Address [address] [facility] [address] [place] [address] Home Phone Work Phone Mobile Phone Preferred Language en Marital Status Single Latter Day Affiliation Unknown Race White Ethnic Group or Author Organization [employer] [facility] Address [address] [place] [address] Care Team Providers Care Independent Living Advisor Name Role Phone Unavailable Primary Care Provider Unavailabl e Reason for Visit * Reason Comments Med Refill Encounter Details Date Type Department Care Team (Late st Contact Info) Description 02/09/2024 Refill [facility] ADULT DENTAL [address] [place] [address] Shaye Burgos DDS [address] [place], [place] [phone] Social History Tobacco Use Types Packs/Day Years [...] encounter Miscellaneous Notes * Telephone Encounter - Shaye Burgos DDS - 02/09/2024 8:03 AM EDT Approving, but needs appt for additional refills. documented in this encounter Plan of Treatment Not on file documented as of this encounter Visit Diagnoses Not on filedocumented in this encounter
== END 2024-10-09 12:27 | disposition home or self-care (01) ==
PROVIDERS: PCP Internal Medicine; Visit Provider Internal Medicine
DX: K62.89 Other specified diseases of anus and rectum (principal); R10.2 Pelvic and perineal pain; R19.8 Other specified symptoms and signs involving the digestive system and abdomen; L73.9 Follicular disorder, unspecified
CPT/HCPCS: 99214

== ENCOUNTER → 2024-10-09 11:49 | Outpatient (BNVA) | payer OTHER, SELFPAY | PROVIDERS: PCP Internal Medicine; Visit Provider Internal Medicine | DX: K62.89 Other specified diseases of anus and rectum (principal); R10.2 Pelvic and perineal pain; R19.8 Other specified symptoms and signs involving the digestive system and abdomen; L73.9 Follicular disorder, unspecified; Z98.890 Other specified postprocedural states | CPT/HCPCS: 99212 ==

== ENCOUNTER 2024-11-06 10:38 | Outpatient (AMB) | payer OTHER, SELFPAY ==
--- NOTE | 2024-11-06 10:40 | A.OFFVIS_ITS ---
Vital Signs 11/06/24 10:44 Weight 196 lb 3.382 oz Blood Pressure Location Lt brachial Position Sitting Intake Visit Reasons: 4 wks f/u Intake Note: Lisa presents in the office as a 4 week follow up. CC: Allergies No Known Allergies Allergy (Mild, Verified 11/06/24 10:45) NOT APPLICABLE HPI Comments Details: 38 y.o F who is here for intermittent rectal bleeding. Reports onset almost 3 months ago. Thinks possibly was straining when this initially started but since then even when stools are soft and pt not straning she notices blood on wiping. With this also noticing some rectal pressure. DOes not report hx of anal trauma or intercourse. No abd pain, N,V. No unintentional weight loss. 07/31/24: Here for follow up. Was supposed to have flex sig 07/16 which had to be rescheduled. Continues to have rectal pressure since she was last seen. Pain is severe enough where she is unabke to sit for a prolonged time. Feels that hemorrhoids have prolapsed even further. Quite upset at procedure being rescheduled from 07/16 (there was limited anesthesia availability for that day, and procedures had to be moved to a different date). 08/19/24: 1. Normal colon mucosa on left side 2. One polyp removed 3. External and internal hemorrhoids Recommendations: - Follow path results. - Colonoscopy in 5-7 years if this is an adenoma, otherwise at 47 y.o - No proctitis or stigmata of hemorrhoidal bleeding. Consider Ob-MANAGER PRINTING referral for pelvic pressure, pt also with heavy menstrual bleeding. 10/09/24: Here for follow-up after flexible sigmoidoscopy. Accompanied by her neighbor. Patient quite overwhelmed during this visit, and chief complaint ranges from from rectal pressure to sharp pain during defecation to pain on sitting/driving the car. Patient also continues to use preparation H without any improvement. She had previously described heavy menstrual bleeding and pelvic pressure, but declined to be booked with OBGYN when their office had called. Today, patient reports that she never had pelvic pressure or menorrhagia. 11/06/24: Here for 4 weeks follow up. Stopped applying nitroglycerin after 2 weeks. Only using topical lidocaine now. Reminded that lidocaine is only a topical anesthetic and may not necessarily tx a presumed anal fissure (again pt declines rectal exam today). Sometimes sees a few spots of blood after wiping. Stool is regular brown colored. Due to see surg next week. 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 Cognitive needs: No Hearing needs: No Vision needs: Yes Female Reproductive History Menstrual Age of Menarche: 17 Review of Systems Const All systems reviewed & are unremarkable except as noted in HPI and below Physical Exam Vital Signs: No apparent distress Nonicteric Abdomen soft, nondistended Rectal declined by pt Alert and oriented x3, normal gait Assessment & Plan Assessment & Plan (1) Anal pain: Code(s): K62.89 - Other specified diseases of anus and rectum Category: Medical (2) Pelvic pain: Code(s): R10.2 - Pelvic and perineal pain Category: Medical (3) Rectal pressure: Code(s): R19.8 - Other specified symptoms and signs involving the digestive system and abdomen Category: Medical Plan 1. Anal pain/rectal pain Educated the pt that lidocaine is only a topical anesthetic. Will need nitroglyceirn for vasodilatory effect for management of anal fissure. Again re- iterated to pt that this remains the presumed most likely diagnosis as pt has declined rectal exams these past few visits and no fissure was noted when she was initially examined in Mar 2024. 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 Plan: - Educated to resume application of topical nitroglycerin. This is to be cont'd for at least 4 weeks - Topical lidocaine refilled - Surg appt coming up - pt was counseled and prepared that will likely have anoscopy exam for complete assessment - If no anal fissure present on dedicated exam, low threshold for ARMS for as sessment of resting anal tone and sphincter pressures - Pelvic floor PT pending Follow up 2 months Medications: Refilled lidocaine 5% 1 appl topical BID 30 grams 0RF Coding Level of Care Code Est Pt Level 4 (92868) Diagnoses Anal pain K62.89 Pelvic pain R10.2 Rectal pressure R19.8
--- OUTSIDE RECORDS SUMMARY | 2024-11-06 12:33 | XMS_ITS | Clinical Summary ---
Demographics Address [address] [facility] [address] [place] [address] Home Phone Work Phone Mobile Phone Preferred Language en Marital Status Single Scientologist Affiliation Unknown Race White Ethnic Group or Author Organization [employer] [facility] Address [address]t [place] [address] Care Team Providers Care Linemarker Name Role Phone Unavailable Primary Care Provider Unavailabl e Allergies No known active allergies Medications chlorhexidine (Peridex) 0.12 % solution Swish 15 mL morning and night for 1 minute. Spit, do not swallow. Do not eat or drink for 30 minutes following use. 473 mL 4 Active Sod Fluoride-Potass ium Nitrate 1.1-5 % paste Dresher teeth for 2 minutes, morning and night. [...] Phone Billing Address Dental Self 1985 [address] [facility] [address] [place] [address] D[facility]AL-[facility] MEDICAID STAND ADULT * Guarantor: Lisa Crane I Account Type Relation to Patient Date of Phone Billing Address Personal/Family Self [address] [facility] [address] [place] [address] * Guarantor: Lisa Crane I Account Type Relation to Patient Date of Phone Billing Address Personal/Family Self 1985 [address] [facility] [address] [place] [address] [address] [place] [address] [address] [place] [address]
--- OUTSIDE RECORDS SUMMARY | 2024-11-06 12:33 | XMS_ITS | Clinical Summary ---
Author Organization [facility] ity Address [address] [place] [address] Care Team Providers Care Senior Managing Director Name Role Phone Florentino Canales MD Primary [...] age to complete this topic Care Teams Senior Managing Director Relationship Specialty Start Date End Date Florentino Canales MD [address] [place] [address] Dr [address] [place], [place] PCP - General Internal Medicine 03/28/19
--- OUTSIDE RECORDS SUMMARY | 2024-11-06 12:33 | XMS_ITS | Encounter Summary ---
Demographics Address [address] [facility] [address] [place] [address] Home Phone Work Phone Mobile Phone Preferred Language en Marital Status Single Scientologist Affiliation Unknown Race White Ethnic Group or Author Organization [employer] [facility] Address [address] [place] [address] Care Team Providers Care Inspector Watch Train Name Role Phone Unavailable Primary Care Provider Unavailabl e Reason for Visit * Reason Onset Date Comments medication 10/26/2023 Encounter Details Date Type Department Care Team (Late st Contact Info) Description 10/26/2023 Telephone [facility]ULT D[facility] [address] [place], [place] [phone] Lion Lim DDS [address] [place], [place] [phone] medication Social History Tobacco Use Types Packs/Day [...]
--- OUTSIDE RECORDS SUMMARY | 2024-11-06 12:33 | XMS_ITS | Encounter Summary ---
Demographics Address [address] [facility] [address] [place] [address] Home Phone Work Phone Mobile Phone Preferred Language en Marital Status Single Islam Affiliation Unknown Race White Ethnic Group or Author Organization [employer] [facility] Address [address] [place] [address] Care Team Providers Care Manager Servicing Name Role Phone Unavailable Primary Care Provider Unavailabl e Reason for Visit * Reason Comments Med Refill Encounter Details Date Type Department Care Team (Late st Contact Info) Description 02/09/2024 Refill [facility] ADULT DENTAL [address] [place] [address] Shaye Burgos DDS [address] [place], [place] [phone] Social History Tobacco Use Types Packs/Day Years [...]
--- OUTSIDE RECORDS SUMMARY | 2024-11-06 12:33 | XMS_ITS | Encounter Summary ---
Demographics Address [address] [facility] [address] [place] [address] Home Phone Work Phone Mobile Phone Preferred Language en Marital Status Single Latter-Day Affiliation Unknown Race White Ethnic Group or Author Organization [employer] [facility] Address [address] [place] [address] Care Team Providers Care Dishwasher Preparer Name Role Phone Unavailable Primary Care Provider [...]
--- OUTSIDE RECORDS SUMMARY | 2024-11-06 12:33 | XMS_ITS | Encounter Summary ---
Demographics Address [address] [facility] [facility] [place] [address] Home Phone Work Phone Mobile Phone Preferred Language en Marital Status Single Samaritan Affiliation Unknown Race White Ethnic Group or Author Organization [employer] [facility] Address [address]t [place] [address] Care Team Providers Care Educational Audiologist Name Role Phone Unavailable Primary Care Provider [...]
== END 2024-11-06 11:13 | disposition home or self-care (01) ==
LOC: HO.HGI 10:39
PROVIDERS: PCP Internal Medicine; Visit Provider Internal Medicine
DX: K62.89 Other specified diseases of anus and rectum (principal); R10.2 Pelvic and perineal pain; R19.8 Other specified symptoms and signs involving the digestive system and abdomen
CPT/HCPCS: 99214

== ENCOUNTER → 2024-11-06 10:38 | Outpatient (BNVA) | payer OTHER, SELFPAY | PROVIDERS: PCP Internal Medicine; Visit Provider Internal Medicine | DX: K62.89 Other specified diseases of anus and rectum (principal); R10.2 Pelvic and perineal pain; R19.8 Other specified symptoms and signs involving the digestive system and abdomen | CPT/HCPCS: 99212 ==

== ENCOUNTER 2024-11-14 10:12 | Outpatient (AMB) | payer OTHER, SELFPAY ==
--- NOTE | 2024-11-14 10:18 | MHC.OFFVIS ---
Vital Signs 11/14/24 10:24 Height 58 ft Weight 198 lb BMI 0.3 BP 119/77 Blood Pressure Location Rt brachial Position Sitting Pulse 66 Intake Visit Reasons: Other specified diseases of anus and rectum Intake Note: Patient referred by Dr. Stratton for anal fissure. Patient c/o: bleeding when wiping. Reports anal pressure when using bathroom. Using topical lidocaine as needed. Colonoscopy: 08-19-2024. Plumbing Service Technician Required: No Accompanied by: Self / Same As Patient Allergies No Known Allergies Allergy (Mild, Verified 11/14/24 10:22) NOT APPLICABLE Medication List - Last Reconciled 11/14/24 by Cleve Valenzuela MD acetaminophen (Tylenol Extra Strength) 500 mg PO TID PRN cephalexin 500 mg PO TID chlorhexidine gluconate 4% (Hibiclens) 1 appl topical ONCE 10 days Donut pillow As directed fluoxetine 20 mg PO DAILY fluticasone propionate 50 mcg/actuation 2 sprays intranasal DAILY PRN hydrocortisone 2.5% (Anusol-HC) 1 appl IL BID-QID PRN hydrocortisone acetate (Anusol-HC) 25 mg IL BEDTIME ibuprofen 800 mg PO Q8H PRN 30 days lidocaine 5% 1 appl topical BID miscellaneous medical supply 1 ea miscellaneous DAILY nitroglycerin 0.4%(w/w) 1 inch IL BID psyllium husk 1 tbsp PO DAILY sodium phosphates 19-7 gram/118 mL (Fleet Enema) 118 mL IL ONCE witch jake 50% (Tucks (witch jake)) 2 pad topical DAILY 7 days HPI HPI Other specified diseases of anus and rectum: Details: 39 year female who is says she is here because of 2 issues. She says she was told she may have an anal fissure. She describes having anal pain on and off for several months now. She denies any bleeding She does state that she also has hemorrhoids The 2nd issue that she has currently is that she has this significant tenderness and pain and redness on the left buttock area which she feels this an abscess. She says this is the 1 that has bothering more today. She says she has had this for about 4 days now. She says she has had small abscesses in the past on different areas of her body. 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 Cognitive needs: No Hearing needs: No Vision needs: Yes Female Reproductive History Menstrual Age of Menarche: 17 Review of Systems Const Denies chills and Denies fever(s) Card Denies chest pain, Denies dyspnea and Denies dyspnea on exertion Resp Denies cough, Denies dyspnea and Denies dyspnea on exertion GI Denies hematochezia and Denies change in bowel habits Denies hematuria Musc Denies back pain and Denies limited range of motion Neuro Denies focal weakness and Denies convulsions Psych Denies depression and Denies mood swings Physical Exam Vital Signs: Last Vital Signs Pulse 66 11/14/24 10:24 BP 119/77 11/14/24 10:24 BMI result Body Mass Index 0.3 Const General: comfortable and no acute distress Resp Effort & Inspection: normal respiratory effort Cardio Rate: regular rate GI Other: Rectal exam - retraction of the anal orifice does not reveal any anal fissure. There is no tenderness or hypertonicity. She does have some small external hemorrhoids anteriorly Back/Spine/Pelvis Other: On the left buttock is note of a area of induration, about 2 x 3 cm with redness and an opening in the middle consistent with an infected epidermal cyst with possible abscess Office Procedures I&D Drain Details: She was in prone position. The area of the cystic induration was prepped and draped. I used lidocaine 1% for local anesthesia. I made a cruciate incision using blade 11. It was carried down through the full-thickness of the skin. There was note of a well-defined markedly indurated area of skin and subcutaneous fat. I debrided this sharply with the blade 11. I left an open wound. I covered the area with dry dressings. [id number] of Skin Abscess, complex All charges added?: Procedure code (CPT) selection complete Assessment & Plan Assessment & Plan (1) Infected cyst of skin: Code(s): L72.9 - Follicular cyst of the skin and subcutaneous tissue, unspecified; L08.9 - Local infection of the skin and subcutaneous tissue, unspecified Category: Medical Plan: She has what appeared to be an infected cyst with a question of abscess on the left buttock. I therefore did an I and D and debridement using a blade 11. I excise indurated and disease skin and subcutaneous tissue. I left an open wound. I have instructed on daily wound care including dressing changes every day. I will see her in the office in about 2 weeks for a wound check. I have sent a prescription for Keflex. Medications: New cephalexin 500 mg PO TID 15 caps 0RF Coding Level of Care Code New Pt Level 3 (67923) Diagnoses Infected cyst of skin L72.9; L08.9 CPT Codes I&D Drain - Drain 2: [id number] of Skin Abscess, complex ([id number])
[2024-11-14 10:24] VITALS: BP 119/77; PULSE 66
--- OUTSIDE RECORDS SUMMARY | 2024-11-14 11:03 | XMS_ITS | Encounter Summary ---
Demographics Address [address] [facility] [address] [place] [address] Home Phone Work Phone Mobile Phone Preferred Language en Marital Status Single Jain Affiliation Unknown Race White Ethnic Group or Author Organization [employer] [facility] Address [address] [place] [address] Care Team Providers Care Sap Fico Architect Name Role Phone Unavailable Primary Care Provider Unavailabl e Reason for Visit * Reason Comments Med Refill Encounter Details Date Type Department Care Team (Late st Contact Info) Description 02/09/2024 Refill [facility] ADULT DENTAL [address] [place] [address] Shaye Burgos DDS [address] [place], [place] [phone] Social History Tobacco Use Types Packs/Day Years [...]
--- OUTSIDE RECORDS SUMMARY | 2024-11-14 11:03 | XMS_ITS | Clinical Summary ---
Demographics Address [address] [address] [place] [address] Home Phone Work Phone Mobile Phone Preferred Language en Marital Status Single Mormon Affiliation Unknown Race White Ethnic Group or Author Organization [employer] [facility] Address [address]t [place] [address] Care Team Providers Care Chipper Feeder Name Role Phone Unavailable Primary Care Provider Unavailabl e Allergies No known active allergies Medications chlorhexidine (Peridex) 0.12 % solution Swish 15 mL morning and night for 1 minute. Spit, do not swallow. Do not eat or drink for 30 minutes following use. 473 mL 4 Active Sod Fluoride-Potass ium Nitrate 1.1-5 % paste Hunker teeth for 2 minutes, morning and night. [...] Phone Billing Address Dental Self 1985 [address] [facility] [place] [address] [facility]AL-[facility] MEDICAID STAND ADULT * Guarantor: Lisa Crane I Account Type Relation to Patient Date of Phone Billing Address Personal/Family Self [address] [facility] [place] [address] * Guarantor: Lisa Crane I Account Type Relation to Patient Date of Phone Billing Address Personal/Family Self 1985 [address] [facility] [place] [address] [address] [facility] [place] [facility] [place] [address] [address] [facility] [place] [address]
--- OUTSIDE RECORDS SUMMARY | 2024-11-14 11:04 | XMS_ITS | Encounter Summary ---
Demographics Address [address] [facility] [address] [place] [address] Home Phone Work Phone Mobile Phone Preferred Language en Marital Status Single Christianity Affiliation Unknown Race White Ethnic Group or Author Organization [employer] [facility] Address [address] [place] [address] Care Team Providers Care Supervisor Partial Denture Department Name Role Phone Unavailable Primary Care Provider [...]
--- OUTSIDE RECORDS SUMMARY | 2024-11-14 11:04 | XMS_ITS | Encounter Summary ---
Demographics Address [address] [facility] [address] [place] [address] Home Phone Work Phone Mobile Phone Preferred Language en Marital Status Single Congregational Affiliation Unknown Race White Ethnic Group or Author Organization [employer] [facility] Address [address]t [place] [address] Care Team Providers Care White Sidewall Tire Buffer Name Role Phone Unavailable Primary Care Provider [...]
--- OUTSIDE RECORDS SUMMARY | 2024-11-14 11:04 | XMS_ITS | Encounter Summary ---
Demographics Address [address] [facility] [address] [place] [address] Home Phone Work Phone Mobile Phone Preferred Language en Marital Status Single Lutheran Affiliation Unknown Race White Ethnic Group or Author Organization [employer] [facility] Address [address] [facility] [facility] [address] [place] [address] Care Team Providers Care Roll Forming Machine Operator Name Role Phone Unavailable Primary Care Provider Unavailabl e Reason for Visit * Reason Onset Date Comments medication 10/26/2023 Encounter Details Date Type Department Care Team (Late st Contact Info) Description 10/26/2023 Telephone [facility] ADULT DENTAL [address] [place], [place] [phone] Lion Lim DDS [address] [place], [place] [phone] medication Social History Tobacco Use Types Packs/Day [...]
--- OUTSIDE RECORDS SUMMARY | 2024-11-14 11:04 | XMS_ITS | Clinical Summary ---
Author Organization [facility] [employer] [facility] ity Address [address] [place] [address] Care Team Providers Care Technical Illustrations Map Inker Name Role Phone Florentino Canales MD Primary [...] Screening: P ap Smear 2008 COVID-19 Vaccine (2023-2 5 season) 2024 Influenza Vaccine (Season Ended) 2025 HIB Vaccines Aged Out No longer eligi [...] age to complete this topic Care Teams Technical Illustrations Map Inker Relationship Specialty Start Date End Date Florentino Canales MD [address] [place] [address] Dr [address] [place], [place] PCP - General Internal Medicine 03/28/19
== END 2024-11-14 11:55 | disposition home or self-care (01) ==
LOC: HO.HGS 10:13
PROVIDERS: PCP Internal Medicine; Visit Provider Surgery
DX: K62.89 Other specified diseases of anus and rectum (principal); L08.9 Local infection of the skin and subcutaneous tissue, unspecified
CPT/HCPCS: 10061; 99203

== ENCOUNTER → 2024-11-14 10:12 | Outpatient (BNVA) | payer OTHER, SELFPAY | PROVIDERS: PCP Internal Medicine; Visit Provider Surgery | DX: L72.9 Follicular cyst of the skin and subcutaneous tissue, unspecified (principal); L08.9 Local infection of the skin and subcutaneous tissue, unspecified | CPT/HCPCS: 10061; 99202 ==

== ENCOUNTER 2024-11-28 10:11 | Outpatient (AMB) | payer OTHER, SELFPAY ==
--- NOTE | 2024-11-28 10:15 | A.OFFVIS_ITS ---
Vital Signs 11/28/24 10:19 Height 5 ft 8 in Weight 198 lb BMI 30.1 BP 125/68 Blood Pressure Location Rt brachial Position Sitting Pulse 80 Intake Visit Reasons: s/p cyst drainage Intake Note: Patient here s/p I&D abscess on Lt buttock. Finished Keflex course. Patient c/o: white discharge noted on bandaid. Junior Designer Required: No Accompanied by: Self / Same As Patient Allergies No Known Allergies Allergy (Mild, Verified 11/28/24 10:20) NOT APPLICABLE Medication List - Last Reconciled 11/28/24 by Cleve Valenzuela MD acetaminophen (Tylenol Extra Strength) 500 mg PO TID PRN cephalexin 500 mg PO TID chlorhexidine gluconate 4% (Hibiclens) 1 appl topical ONCE 10 days Donut pillow As directed fluoxetine 20 mg PO DAILY fluticasone propionate 50 mcg/actuation 2 sprays intranasal DAILY PRN hydrocortisone 2.5% (Anusol-HC) 1 appl OH BID-QID PRN hydrocortisone acetate (Anusol-HC) 25 mg OH BEDTIME ibuprofen 800 mg PO Q8H PRN 30 days lidocaine 5% 1 appl topical BID miscellaneous medical supply 1 ea miscellaneous DAILY nitroglycerin 0.4%(w/w) 1 inch OH BID psyllium husk 1 tbsp PO DAILY sodium phosphates 19-7 gram/118 mL (Fleet Enema) 118 mL OH ONCE witch jake 50% (Tucks (witch jake)) 2 pad topical DAILY 7 days HPI HPI s/p cyst drainage: Details: She had an infected cyst on the left buttock that I had drained and debrided last 11/14/2024. She says this this has helped a lot and she feels much better. She denies any problems currently but does state that she has another cyst on the right buttock and this has been bothering her a lot for several weeks now. She wants this excised. She was finished the course of the Keflex. 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 Cognitive needs: No Hearing needs: No Vision needs: Yes Female Reproductive History Menstrual Age of Menarche: 17 Review of Systems Const Denies chills and Denies fever(s) Card Denies chest pain, Denies dyspnea and Denies dyspnea on exertion Resp Denies cough, Denies dyspnea and Denies dyspnea on exertion GI Denies hematochezia and Denies change in bowel habits Denies hematuria Musc Denies back pain and Denies limited range of motion Neuro Denies focal weakness and Denies convulsions Psych Denies depression and Denies mood swings Physical Exam Vital Signs: Last Vital Signs Pulse 80 11/28/24 10:19 BP 125/68 11/28/24 10:19 BMI result Body Mass Index 30.1 Const General: comfortable and no acute distress Resp Effort & Inspection: normal respiratory effort Cardio Rate: regular rate Back/Spine/Pelvis Other: Debridement site on the left buttock well healing, not infected, much less induration Cystic induration on the right buttock about 1.5 cm, tender to touch Assessment & Plan Assessment & Plan (1) Skin abscess: Code(s): L02.91 - Cutaneous abscess, unspecified Category: Medical Plan: I had drained and debrided this in the office 2 weeks ago and this has improved significantly. She is happy with the outcome. I have instructed her on good wound care. (2) Epidermal cyst: Code(s): L72.0 - Epidermal cyst Category: Medical Plan: She has this tender epidermal cyst on the right buttock. She wants this excised. I explained the technique of excision under local anesthesia. I reviewed the risks, benefits, and alternatives and she wants to proceed We will schedule him for excision in the office under local anesthesia. This will be done on her next visit. Coding Level of Care Code Est Pt Level 3 (00271) Diagnoses Skin abscess L02.91 Epidermal cyst L72.0
[2024-11-28 10:19] VITALS: BP 125/68; PULSE 80; BMI 30.1
--- OUTSIDE RECORDS SUMMARY | 2024-11-28 12:03 | XMS_ITS | Encounter Summary ---
Demographics Address [address] [facility] [address] [place] [address] Home Phone Work Phone Mobile Phone Preferred Language en Marital Status Single Yazdanism Affiliation Unknown Race White Ethnic Group or Author Organization [employer] [facility] Address [address] 7[address] [place] [address] Care Team Providers Care Sales Floor Manager Name Role Phone Unavailable Primary Care Provider [...]
--- OUTSIDE RECORDS SUMMARY | 2024-11-28 12:03 | XMS_ITS | Encounter Summary ---
Demographics Address [address] [facility] [address] [place] [address] Home Phone Work Phone Mobile Phone Preferred Language en Marital Status Single Orthodox Affiliation Unknown Race White Ethnic Group or Author Organization [employer] [facility] Address [address] [facility] [facility] [address] [place] [address] Care Team Providers Care Conciliator Name Role Phone Unavailable Primary Care Provider [...]
--- OUTSIDE RECORDS SUMMARY | 2024-11-28 12:03 | XMS_ITS | Clinical Summary ---
Demographics Address [address] [facility] [address] [place] [address] Home Phone Work Phone Mobile Phone Preferred Language en Marital Status Single Anabaptist Affiliation Unknown Race White Ethnic Group or Author Organization [employer] [facility] Address [address] [facility] 7t [place] [address] Care Team Providers Care Senior Database Administrator Name Role Phone Unavailable Primary Care Provider Unavailabl e Allergies No known active allergies Medications chlorhexidine (Peridex) 0.12 % solution Swish 15 mL morning and night for 1 minute. Spit, do not swallow. Do not eat or drink for 30 minutes following use. 473 mL 4 Active Sod Fluoride-Potass ium Nitrate 1.1-5 % paste [place] teeth for 2 minutes, morning and night. [...] Phone Billing Address Dental Self 1985 [address] [facility] [address] [place] [address] DENTAL-[facility] MEDICAID STAND ADULT * Guarantor: Lisa Crane I Account Type Relation to Patient Date of Phone Billing Address Personal/Family Self [address] [facility] [address] [place] [address] * Guarantor: Lisa Crane I Account Type Relation to Patient Date of Phone Billing Address Personal/Family Self 1985 [address] [facility] [address] [place] [address] [address] [facility] [place] [address] [address] [facility] [place] [facility] [place] [address]
--- OUTSIDE RECORDS SUMMARY | 2024-11-28 12:03 | XMS_ITS | Encounter Summary ---
Demographics Address [address] [facility] [address] [place] [address] Home Phone Work Phone Mobile Phone Preferred Language en Marital Status Single Judaism Affiliation Unknown Race White Ethnic Group or Author Organization [facility] Address [address] [place] [address] Care Team Providers Care Liquor Blender Name Role Phone Unavailable Primary Care Provider Unavailabl e Reason for Visit * Reason Comments Med Refill Encounter Details Date Type Department Care Team (Late st Contact Info) Description 02/09/2024 Refill [facility] ADULT DENTAL [address] [place] [address] Shaye Burgos DDS [address] [place], [place] [phone] Social History Tobacco Use Types Packs/Day Years [...]
--- OUTSIDE RECORDS SUMMARY | 2024-11-28 12:03 | XMS_ITS | Encounter Summary ---
Demographics Address [address] [facility] [address] [place] [address] Home Phone Work Phone Mobile Phone Preferred Language en Marital Status Single Islam Affiliation Unknown Race White Ethnic Group or Author Organization [employer] [facility] Address [address] [facility] [address] [place] [address] Care Team Providers Care Maintenance Of Way Foreman Name Role Phone Unavailable Primary Care Provider Unavailabl e Reason for Visit * Reason Onset Date Comments medication 10/26/2023 Encounter Details Date Type Department Care Team (Late st Contact Info) Description 10/26/2023 Telephone [facility] ADULT DENTAL [address] [place], [place] [phone] Lion Lim DDS [address] [place], [place] [phone] medication Social History Tobacco Use Types Packs/Day [...]
--- OUTSIDE RECORDS SUMMARY | 2024-11-28 12:03 | XMS_ITS | Clinical Summary ---
Author Organization [facility] [facility] ity Address [address] [place] [address] Care Team Providers Care Refuse Collector Name Role Phone Florentino Canales MD Primary [...] age to complete this topic Meningococcal B Vaccine Aged Out No l onger eligible based on patient's age to complete [...] age to complete this topic Care Teams Refuse Collector Relationship Specialty Start Date End Date Florentino Canales MD [address] [place] [address] Dr [address] [place], [place] PCP - General Internal Medicine 03/28/19
== END 2024-11-28 10:32 | disposition home or self-care (01) ==
LOC: HO.HGS 10:12
PROVIDERS: PCP Internal Medicine; Visit Provider Surgery
DX: L02.91 Cutaneous abscess, unspecified (principal); L72.0 Epidermal cyst
CPT/HCPCS: 99213

== ENCOUNTER → 2024-11-28 10:11 | Outpatient (BNVA) | payer OTHER, SELFPAY | PROVIDERS: PCP Internal Medicine; Visit Provider Surgery | DX: L02.91 Cutaneous abscess, unspecified (principal); L72.0 Epidermal cyst | CPT/HCPCS: 99212 ==

== ENCOUNTER 2024-12-19 10:02 | Outpatient (AMB) | payer OTHER, SELFPAY ==
--- NOTE | 2024-12-19 10:04 | A.OFFVIS_ITS ---
Vital Signs 12/19/24 10:09 Height 5 ft 8 in Weight 197 lb BMI 30.0 BP 128/75 Blood Pressure Location Rt brachial Position Sitting Pulse 71 Intake Visit Reasons: excision cyst right buttock Intake Note: Patient scheduled for cyst excision on buttock but declined procedure. Would like to treat with antibiotics. Development System Efficiency Manager Required: No Accompanied by: Self / Same As Patient Allergies No Known Allergies Allergy (Mild, Verified 12/19/24 10:11) NOT APPLICABLE Medication List - Last Reconciled 12/19/24 by Cleve Valenzuela MD acetaminophen (Tylenol Extra Strength) 500 mg PO TID PRN cephalexin 500 mg PO TID chlorhexidine gluconate 4% (Hibiclens) 1 appl topical ONCE 10 days Donut pillow As directed fluoxetine 20 mg PO DAILY fluticasone propionate 50 mcg/actuation 2 sprays intranasal DAILY PRN hydrocortisone 2.5% (Anusol-HC) 1 appl HI BID-QID PRN hydrocortisone acetate (Anusol-HC) 25 mg HI BEDTIME ibuprofen 800 mg PO Q8H PRN 30 days lidocaine 5% 1 appl topical BID miscellaneous medical supply 1 ea miscellaneous DAILY nitroglycerin 0.4%(w/w) 1 inch HI BID psyllium husk 1 tbsp PO DAILY sodium phosphates 19-7 gram/118 mL (Fleet Enema) 118 mL HI ONCE witch jake 50% (Tucks (witch jake)) 2 pad topical DAILY 7 days HPI HPI excision cyst right buttock: Details: She is here for follow-up for a cyst on the right buttock. She had wanted this excised on her last visit. However she says she has changed her mind She says there were several areas on both buttocks that have similar issues. She does state that the swelling and pain have improved significantly on this particular cysts on the right buttock. 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 Cognitive needs: No Hearing needs: No Vision needs: Yes Female Reproductive History Menstrual Age of Menarche: 17 Review of Systems Const Denies chills and Denies fever(s) Card Denies chest pain, Denies dyspnea and Denies dyspnea on exertion Resp Denies cough, Denies dyspnea and Denies dyspnea on exertion GI Denies hematochezia and Denies change in bowel habits Denies hematuria Musc Denies back pain and Denies limited range of motion Neuro Denies focal weakness and Denies convulsions Psych Reports anxiety, Denies depression and Denies mood swings Physical Exam Const General: comfortable and no acute distress Resp Effort & Inspection: normal respiratory effort Cardio Rate: regular rate Back/Spine/Pelvis Other: Multiple areas of cystic induration on both left and right buttocks without acute inflammation, no fluctuance, no tenderness, no discharge Assessment & Plan Assessment & Plan (1) Hidradenitis suppurativa: Code(s): L73.2 - Hidradenitis suppurativa Category: Medical Plan: She has had multiple and recurrent areas of cystic induration with swelling and inflammation on both buttocks. Findings are actually consistent with hidradenitis suppurativa She had planned on having 1 of the cystic areas excised but she has changed her mind. She says that this has improved significantly She was as seen for a more long-term treatment. I told her that she may benefit from biologic therapy so I will send her to the theater education teacher. I gave her phone number for [facility] in [place]. She can otherwise follow up with me on a p.r.n. basis. Coding Level of Care Code Est Pt Level 3 (11803) Diagnoses Hidradenitis suppurativa L73.2
[2024-12-19 10:09] VITALS: BP 128/75; PULSE 71
--- OUTSIDE RECORDS SUMMARY | 2024-12-19 11:09 | XMS_ITS | Encounter Summary ---
Demographics Address [address] [facility] [address] [place] [address] Home Phone Work Phone Mobile Phone Preferred Language en Marital Status Single Restoration Affiliation Unknown Race White Ethnic Group Unknown Author Organization [employer] Address [address] [place] [address] Care Team Providers Care Returned Item Clerk Name Role Phone Unavailable Primary Care Provider [...]
--- OUTSIDE RECORDS SUMMARY | 2024-12-19 11:09 | XMS_ITS | Encounter Summary ---
Demographics Address [address] [facility] [address] [facility] [place] [address] Home Phone Work Phone Mobile Phone Preferred Language en Marital Status Single Shinto Affiliation Unknown Race White Ethnic Group Unknown Author Organization [employer] Address [address] [facility] [address] [place] [address] Care Team Providers Care Family Support Specialist Name Role Phone Unavailable Primary Care Provider Unavailabl e Reason for Visit * Reason Onset Date Comments medication 10/26/2023 Encounter Details Date Type Department Care Team ([facility] st Contact Info) Description 10/26/2023 Telephone [facility] ADULT DENTAL [address] [place], [place] [phone] Lion Lim DDS [address] [place], [place] [phone] medication Social History Tobacco Use Types Packs/Day [...]
--- OUTSIDE RECORDS SUMMARY | 2024-12-19 11:09 | XMS_ITS | Encounter Summary ---
Demographics Address [address] [facility] [address] [place] [address] Home Phone Work Phone Mobile Phone Preferred Language en Marital Status Single Latter Day Affiliation Unknown Race White Ethnic Group Unknown Author Organization [employer] Address [address] [facility] [address] [address] [place] [address] Care Team Providers Care Central Office Mechanic Name Role Phone Unavailable Primary Care Provider Unavailabl e Reason for Visit * Reason Comments Med Refill Encounter Details Date Type Department Care Team (Late st Contact Info) Description 02/09/2024 Refill [facility] ADULT DENTAL [address] [place] [address] Shaye Burgos DDS [address] [place] [address] Social History Tobacco Use Types Packs/Day Years [...]
--- OUTSIDE RECORDS SUMMARY | 2024-12-19 11:09 | XMS_ITS | Clinical Summary ---
Demographics Address [address] [place] [address] [address] [place] [address] Home Phone Work Phone Mobile Phone Preferred Language en Marital Status Single Advent Affiliation Unknown Race White Ethnic Group Unknown Author Organization [employer] Address [address] [facility] 7t [place] [address] Care Team Providers Care Embosser Apprentice Name Role Phone Unavailable Primary Care Provider Unavailabl e Allergies No known active allergies Medications chlorhexidine (Peridex) 0.12 % solution Swish 15 mL morning and night for 1 minute. Spit, do not swallow. Do not eat or drink for 30 minutes following use. 473 mL 4 Active Sod Fluoride-Potass ium Nitrate 1.1-5 % paste [place] teeth for 2 minutes, morning and night. [...] Phone Billing Address Dental Self 1985 [address] [facility] [address] [place] [address] [facility] MEDICAID STAND ADULT * Guarantor: Lisa Crane I Account Type Relation to Patient Date of Phone Billing Address Personal/Family Self [address] [facility] [address] [place] [address] * Guarantor: Lisa Crane I Account Type Relation to Patient Date of Phone Billing Address Personal/Family Self 1985 [address] [facility] [address] [place] [address] [address] [place] [address] [address] [place] [address]
--- OUTSIDE RECORDS SUMMARY | 2024-12-19 11:09 | XMS_ITS | Clinical Summary ---
Author Organization [facility] [employer] [facility] ity Address [address] [place] [address] Care Team Providers Care Labor Standards Director Name Role Phone Florentino Canales MD Primary Care Provider [phone] Surgical History Surgery Date Site/Laterality Comments TONSILLECTOMY [...] age to complete this topic Care Teams Labor Standards Director Relationship Specialty Start Date End Date Florentino Canales MD [address] [place] [address] Dr [address] [place], [place] PCP - General Internal Medicine 03/28/19
--- OUTSIDE RECORDS SUMMARY | 2024-12-19 11:09 | XMS_ITS | Encounter Summary ---
Demographics Address [address] [facility] [address] [place] [address] Home Phone Work Phone Mobile Phone Preferred Language en Marital Status Single Scientology Affiliation Unknown Race White Ethnic Group Unknown Author Organization [employer] Address [address] [facility] [address] [place] [address] Care Team Providers Care Life Tester Outboard Motors Name Role Phone Unavailable Primary Care Provider Unavailabl e Encounter Details Date Type Department Care Team (Latest Contact Info) Description 05/18/2022 Abstract [facility] CONVERSIONS Dental, Provider, DDS Social History Tobacco [...]
== END 2024-12-19 10:30 | disposition home or self-care (01) ==
PROVIDERS: PCP Internal Medicine; Visit Provider Surgery
DX: L73.2 Hidradenitis suppurativa (principal)
CPT/HCPCS: 99213

== ENCOUNTER → 2024-12-19 10:02 | Outpatient (BNVA) | payer OTHER, SELFPAY | PROVIDERS: PCP Internal Medicine; Visit Provider Surgery | DX: L73.2 Hidradenitis suppurativa (principal) | CPT/HCPCS: 99212 ==

== ENCOUNTER 2025-02-06 14:23 | Outpatient (AMB) | payer OTHER, SELFPAY ==
--- NOTE | 2025-02-06 14:28 | AM.OFFWIN_ITS ---
Intake Vital Signs 02/06/25 14:29 Height 5 ft 8 in Weight 194 lb BMI 29.5 BP 98/67 Blood Pressure Location Lt brachial Position Sitting Pulse 68 Pulse Source Pulse Oximeter Temp 98.4 F Temp Source Oral Pulse Oximetry (%) 95 Intake Visit Reasons: EP-severe sore throat Patient Tobacco Use Status: Current everyday Tobacco user Stoneworking Sander Required: No Allergies No Known Allergies Allergy (Mild, Verified 02/06/25 14:35) NOT APPLICABLE Do you need a note to return to daycare/school/sports/work: Yes HPI HPI Comments History of Present Illness Details 39 y/o Female patient who presents to [facility] walk [facility] clinic with c/o Sore- throat and cough for 48 hours. She has not used any OTC medications. Denies fevers, chills, nausea or vomiting. PFSH Medical History Acute pharyngitis Hidradenitis suppurativa Epidermal cyst Infected cyst of skin Hx of sigmoidoscopy Insomnia Allergic rhinitis Depression Anxiety Hyperhidrosis Obesity (BMI 30-39.9) Smoker Surgical History History of bilateral tubal ligation (~09/2015) History of tonsillectomy Family History Family/Other Colon cancer Social History Housing: Apartment Patient Tobacco Use Status: Current everyday Tobacco user Tobacco use type: Cigarette Cigarettes Per Day: 5 e-Cigarette/Vaping Use: Never Used Second Hand Smoke Exposure: Yes service: No Current occupational status: employed 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 Cognitive needs: No Hearing needs: No Vision needs: Yes Female Reproductive History Menstrual Age of Menarche: 17 Review of Systems Const All systems reviewed & are unremarkable except as noted in HPI and below Physical Exam Vital Signs: Last Vital Signs Temp 98.4 F 02/06/25 14:29 Pulse 68 02/06/25 14:29 BP 98/67 02/06/25 14:29 Pulse Ox 95 02/06/25 14:29 BMI result Body Mass Index 29.5 Const General: no acute distress Nutritional Appearance: well nourished Orientation/consciousness: patient oriented x3 HEENT Head: Yes normocephalic Ears: external ears normal and TM abnormal with fluid behind the TM bilateral General nose exam: Normal external nose present Face and sinus: Yes sinuses nontender Mouth: moist mucous membranes and Abnormal oral and palatal mucosa present erythematous Throat: Yes uvula midline Resp Effort & Inspection: normal respiratory effort and able to speak in complete sentences Auscultation: clear to auscultation bilaterally, no crackles, no rales, no rhonchi and no wheezes Cardio Heart sounds: S1 normal heart sound present and S2 normal heart sound present Neuro General: patient oriented x3 Assessment & Plan Assessment & Plan (1) Acute pharyngitis: Code(s): J02.9 - Acute pharyngitis, unspecified Qualifiers: Pharyngitis/tonsillitis etiology: unspecified etiology Qualified Code(s): J02.9 - Acute pharyngitis, unspecified Plan: Rapid Strept Negative OTC cough and sorethroat remedies Acetaminophen for pain relief Rest and hydrate with warm fluids. Medications: New dextromethorphan polistirex ER (Delsym 12 hour) 10 mL PO Q12H 89 mL 0RF cough J06.9 - Acute upper respiratory infection, unspecified benzonatate 200 mg (2 x 100 mg) PO BID 60 caps 0RF J02.9 - Acute pharyngitis, unspecified Coding Level of Care Code Est Pt Level 4 (80043) Diagnoses Acute pharyngitis, unspecified etiology J02.9 Pharyngitis/tonsillitis etiology: unspecified etiology Time Spent (min) 20
[2025-02-06 14:29] VITALS: BP 98/67; PULSE 68; TEMP 36.9; O2SAT 95; BMI 29.5
--- OUTSIDE RECORDS SUMMARY | 2025-02-06 17:34 | XMS_ITS | Clinical Summary ---
Author Organization [employer] Address [address] [facility] 7t [place] [address] Care Team Providers Care Hydraulics Teacher Name Role Phone Unavailable Primary Care Provider Unavailabl e Allergies No known active allergies Medications chlorhexidine (Peridex) 0.12 % solution Swish 15 mL morning and night for 1 minute. Spit, do not swallow. Do not eat or drink for 30 minutes following use. 473 mL 10/26/19 24 Active Additional Information Patient not taking.Reason: NO RX, Reported on 01/29/2025 Sod Fluoride-Potas sium Nitrate 1.1-5 % paste [place] teeth for 2 minutes, morning and night. Spit, do not rinse. Do not eat or drink anything for 30 minutes following brushing. 112 g 3 10/26/19 24 Active Additional Information Patient not taking.Reason: Pt states not taking, due to no RX, Reported on 01/29/2025 Sodium Fluoride 1.1 % cream [place] teeth for 2 minutes, morning and night. Spit, do not rinse. Do not eat or drink anything for 30 minutes following use. 112 g 3 01/30/20 25 Active Denta 5000 Plus 1.1 % cream APPLY 1 MG TO TEETH 3 TIMES DAILY. 153 g 02/09/20 24 025 Discontinued Active Problems Problem Noted Date Diagnosed Date Localized gingival recession 01/29/2025 Tooth sensitivity 01/29/2025 Teeth missing 01/29/2025 Retained dental root 09/29/2023 Encounters Date Type Department Care Team Description 01/29/2025 3:00 PM EDT Office Visit [facility] [address] [place] [address] Laina Yoder Localized gingival recession (Primary Dx); Tooth sensitivity; Teeth missing from Last 3 Months Social History Tobacco Use Types Packs/Day Years [...] Sign Reading Time Taken Comments Blood Pressure 126/72 01/29/2025 2:47 PM EDT Pulse - - Temperature - - Respiratory Rate - - Oxygen Saturation - - Inhaled Oxygen Concentration - - Weight - - Height - - Body Mass Index - - Plan of Treatment Upcoming Encounters Date Type Department Care Team (Late st Contact Info) Description 03/13/2025 10:00 AM EDT Office Visit [facility] [address] [place] [address] Shaye Burgos, DDS [address] [place] [address] Health Maintenance Due Date Last Done Comments Depression Screening 1987 HIV Screening 1987 SDOH Screening 1987 Disability Screening 1987 Alcohol/Substance Use Screening 1999 Family Planning (PISQ) 2002 Hepatitis C Screening 2005 DTaP/Tdap/Td Vaccines (1 - Tdap) 2006 Hepatitis B Vaccines (1 of 3 - 19+ 3-dose series) 2006 Pap Smear 2008 Cervical Cancer Screening 2017 HPV/Cotest 2017 COVID-19 Vaccine ( - season) 2024 Influenza Vaccine (Season Ended) 2025 Dental Oral Exam 08/01/2025 01/29/2025, 09/2023, 05/18/2022, Additional history exists Dental Prophylaxis 08/01/2025 01/29/2025, 0 11/14/2023, 11/14/2023, Additional history exists Tobacco Screening 01/29/2026 01/29/2025 Dental X-Ray: Bitewings 01/30/2026 01/30/20 25, 11/14/2023, 09/05/2023, Additional history exists Dental X-Ray: Full Mouth 11/14/2026 024, 07/19/2019, [...] Years) and At-Risk Patients (6 to 49) Years Aged Out No longer eligible based on patient's age to complete this topic RSV under 20 months Aged Out No longe r eligible based on patient's age to complete this topic Rotavirus Vaccines Aged Out No longer eligible based on patient's age to complete this topic Procedures Procedure Name Priority Date/Time Associated Diagnosis Comments PERIODIC ORAL EVALUATION - ESTABLISHED PATIENT Routine 01/29/2025 3:00 PM EDT 24,25 INTRAORAL - PERIAPICAL EACH ADDITIONAL RADIOGRAPHIC IMAGE Routine 01/29/2025 3:00 PM EDT Localized gingival recession Tooth sensitivity Teeth missing 8,9 INTRAORAL - PERIAPICAL FIRST RADIOGRAPHIC IMAGE Routine 01/29/2025 3:00 PM EDT Localized gingival recession Tooth sensitivity Teeth missing CASE PRESENTATION, DETAILED AND EXTENSIVE TREATMENT PLANNING Routine 01/29/2025 3:00 PM EDT Localized gingival recession Tooth sensitivity Teeth missing ORAL HYGIENE INSTRUCTIONS Routine 01/29/2025 3:00 PM EDT Localized gingival recession Tooth sensitivity Teeth missing BITEWINGS - 4 RADIOGRAPHIC IMAGES Routine 01/29/2025 3:00 PM EDT Localized gingival recession Tooth sensitivity Teeth missing Full PROPHYLAXIS - ADULT Routine 06/18/2 025 3:00 PM EDT Localized gingival recession Tooth sensitivity Teeth missing INTRAORAL - COMPLETE SERIES OF RADIOGRAPHIC IMAGES Routine 11/14/2023 9:00 AM EDT Dental plaque Dental calculus Encounter for dental examination Dental caries Teeth missing from Last 3 Months or Most Recently Relevant to Health Maintenance Insurance * Guarantor: Lisa Crane I Account Type Relation to Patient Date of Phone Billing Address Dental Self 1985 [address] [facility] [address] [place] [address] [facility] MEDICAID STAND ADULT
== END 2025-02-06 15:21 | disposition home or self-care (01) ==
PROVIDERS: PCP Internal Medicine; Visit Provider Nurse Practitioner Family
DX: J02.9 Acute pharyngitis, unspecified (principal); Z13.9 Encounter for screening, unspecified

== ENCOUNTER → 2025-02-06 14:23 | Outpatient (BNVA) | payer OTHER, SELFPAY | PROVIDERS: PCP Internal Medicine; Visit Provider Nurse Practitioner Family | DX: J02.9 Acute pharyngitis, unspecified (principal) | CPT/HCPCS: 87880; 99212 ==

== ENCOUNTER 2025-07-26 20:45 | Emergency (ER) | payer OTHER, SELFPAY ==
[2025-07-26 21:03] VITALS: BP 139/93; PULSE 80; RESP 16; TEMP 36.8; O2SAT 99; BMI 29.9
[2025-07-26 21:35] LABS: Hematocrit 41.4 % (37.0-47.0); Hemoglobin 14.2 g/dl (12.0-16.0); Imm Gran Abs Auto 0.03 X10*3/uL (0.00-0.03); Imm Gran Pct Auto 0.3 % (0.0-0.4); Lymphocytes Absolute Auto 2.9 X10*3/uL (1.2-4.9); Mean Corpuscular HGB Conc 34.3 g/dl (31.0-35.0); Mean Corpuscular Hemoglobin 31.3 pg (27.0-33.0); Mean Corpuscular Volume 91.2 fL (80.0-98.0); NRBC Abs Auto 0.000 X10*3/uL (0.0-0.012); NRBC Pct Auto 0.0 /100WBC (0.0-0.2); Platelet Count 381 X10*3/uL (160-400); Red Blood Count 4.54 X10*6/uL (4.20-5.50); White Blood Count 11.9 X10*3/uL (4.8-10.8)
[2025-07-26 21:36] LABS: MANUAL DIFF FLAG NO
[2025-07-26 21:47] LABS: Anion Gap 13 (12-20); Blood Urea Nitrogen 13 mg/dL (9-16); Calcium 9.3 mg/dL (8.4-10.2); Carbon Dioxide 27 mmol/L (22-29); Chloride 107 mmol/L (96-108); Creatinine Clr Calc Pharmacy 132.6; Estimated Glomerular Filt Rate > 60; Potassium 3.6 mmol/L (3.3-5.1); Sodium 143 mmol/L (135-145)
[2025-07-26 21:48] LABS: COVID-19 Test Negative (Negative); IDNOW Serial# 58CA691E; IDNOW Serial# 6674DD1D; Strep A Nucleic Acid Negative (Negative)
[2025-07-26 21:51] LABS: Influenza B2 Negative (Negative)
[2025-07-26 23:43] VITALS: BP 116/80; PULSE 68; RESP 16; TEMP 36.7; O2SAT 98
[2025-07-27] MEDS: Lactated Ringers 1,000 ML 999 ML IV (00:28)
--- NOTE | 2025-07-27 00:36 | PC.NURSE ---
pt medicated per MAR.
--- OUTSIDE RECORDS SUMMARY | 2025-07-27 00:38 | XMS_ITS | Clinical Summary ---
Author Organization [employer] [facility] ity Address [address] [place] [address] Care Team Providers Care Transfer Professor Name Role Phone Florentino Canales MD Primary [...] on file Sexual Orientation Not on file Plan of Treatment Health Maintenance Due Date Last Done Comments DTaP,Tdap,and Td Vaccines (1 - Tdap) 2006 Hepatitis B Vaccines (1 of 3 - 19+ 3-dose series) 2006 Cervical Cancer Screening: P ap Smear 2008 HPV Vaccines (1 - 3-dose SCD M series) 2014 Depression Screening 08/14/2024 COVID-19 Vaccine (1 - 2024-2 6 season) 2025 Influenza Vaccine (#1) 2025 RSV Immunization Adult Patie nts (1 - 1-dose 75+ series) 2062 HIB [...] 5 Years) and At-Risk Patients (6 to 49 Years) Aged Out No longer eligible b ased on patient's age to complete this topic RSV Immunization Patients Un alexa 20 months Aged Out No longer eligible b ased on patient's age to complete this topic Varicella Vaccines Aged Out No longer eligible based on patient's age to complete this topic Care Teams Transfer Professor Relationship Specialty Start Date End Date Florentino Canales MD [address] [place] [address] Dr [address] [place] PCP - General Internal Medicine 03/28/19
--- OUTSIDE RECORDS SUMMARY | 2025-07-27 00:38 | XMS_ITS | Encounter Summary ---
Author Organization [employer] [facility] Address [address] [facility] 7t [place] [address] Care Team Providers Care Body Component Engineer Name Role Phone Unavailable Primary Care Provider Unavailabl e Encounter Details Date Type Department Care Team (Latest Contact Info) Description 05/18/2022 Abstract [facility] CONVERSIONS Dental, Provider, DDS Social History Tobacco [...] as of this encounter Plan of Treatment Upcoming Encounters Date Type Department Care Team (Late st Contact Info) Description 08/21/2025 9:30 AM EST Office Visit [facility] [address] [place] [address] Beba, Laina [address] [place] [address] documented as of this encounter Visit Diagnoses Not on filedocumented in this encounter
--- OUTSIDE RECORDS SUMMARY | 2025-07-27 00:38 | XMS_ITS | Encounter Summary ---
Author Organization [employer] [facility] Address [address] [place] [address] 7 [place] [address] Care Team Providers Care Water Meter Reader Name Role Phone Unavailable Primary Care Provider Unavailabl e Reason for Visit * Reason Onset Date Comments medication 10/26/2023 Encounter Details Date Type Department Care Team (Late st Contact Info) Description 10/26/2023 Telephone [facility] [address] [place], [place] [phone] Lion Lim DDS [address] [place], [place] [phone] medication Social History Tobacco Use Types Packs/Day [...] documented in this encounter Plan of Treatment Upcoming Encounters Date Type Department Care Team (Late st Contact Info) Description 08/21/2025 9:30 AM EST Office Visit [facility] [address] [place], [place] [phone] Laina Yoder [address] [place] [phone] documented as of this encounter Visit Diagnoses Not on filedocumented in this encounter
--- OUTSIDE RECORDS SUMMARY | 2025-07-27 00:38 | XMS_ITS | Encounter Summary ---
Author Organization [employer] [facility] Address [address] [place] [address] 7t [place] [address] Care Team Providers Care Oil Program Compliance Specialist Name Role Phone Unavailable Primary Care Provider Unavailabl e Reason for Visit * Reason Comments Med Refill Encounter Details Date Type Department Care Team (Late st Contact Info) Description 02/09/2024 Refill [facility] [address] [place] [address] Shaye Burgos DDS [address] [place], [place] [phone] Social History Tobacco Use Types Packs/Day Years [...] Encounters Date Type Department Care Team (Late Contact Info) Description 08/21/2025 9:30 AM EST Office Visit [facility] [address] [place] [address] Laina Yoder [address] [place] [phone] documented as of this encounter Visit Diagnoses Not on filedocumented in this encounter
--- OUTSIDE RECORDS SUMMARY | 2025-07-27 00:38 | XMS_ITS | Encounter Summary ---
Author Organization [employer] [facility] Address [address] [facility] 7t [place] [address] Care Team Providers Care Nanotechnology Engineering Technician Name Role Phone Unavailable Primary Care Provider Unavailabl e Encounter Details Date Type Department Care Team (Latest Contact Info) Description 07/19/2019 Abstract [facility] CONVERSIONS Dental, Provider, DDS Social History Tobacco [...] Description 08/21/2025 9:30 AM EST Office Visit [facility] [address] [place] [address] Beba, Laina [address] [place] [address] documented as of this encounter Visit Diagnoses Not on filedocumented in this encounter
--- OUTSIDE RECORDS SUMMARY | 2025-07-27 00:38 | XMS_ITS | Clinical Summary ---
Author Organization [employer] Address [address] [facility] 7[address] [place] [address] Care Team Providers Care Band And Cuff Cutter Name Role Phone Unavailable Primary Care Provider Unavailabl e Allergies No known active allergies Medications chlorhexidine (Peridex) 0.12 % solution Swish 15 mL morning and night for 1 minute. Spit, do not swallow. Do not eat or drink for 30 minutes following use. 473 mL 4 Active Additional Information Patient not taking.Reason: NO RX, Reported on 01/29/2025 Sod Fluoride-Potass ium Nitrate 1.1-5 % paste [place] teeth for 2 minutes, morning and night. Spit, do not rinse. Do not eat or drink anything for 30 minutes following brushing. 112 g 3 4 Active Additional Information Patient not taking.Reason: Pt states not taking, due to no RX, Reported on 01/29/2025 Sodium Fluoride 1.1 % cream [place] teeth for 2 minutes, morning and night. Spit, do not rinse. Do not eat or drink anything for 30 minutes following use. 112 g 3 5 Active Active Problems Problem Noted Date Diagnosed Date Localized gingival recession 01/29/2025 Tooth sensitivity 01/29/2025 Teeth missing 01/29/2025 Retained dental root 09/29/2023 Encounters Date Type Department Care Team Description 05/13/2025 11:00 AM EDT Office Visit [facility] [address] [place], [place] [phone] Shaye Burgos DDS Encounter for dental examination (Primary Dx); Dental plaque; Dental calculus; Teeth missing from Last 3 Months Social [...] Description 08/21/2025 9:30 AM EST Office Visit [facility] [address] [place] [address] Beba, Laina [address] [place] [address] Health Maintenance Due Date Last Done Comments Depression Screening 1987 HIV Screening 1987 SDOH Screening 1987 Disability Screening 1987 Alcohol/Substance Use Screening 1999 Family Planning (PISQ) 2002 HPV Vaccines (1 - 3-dose series) 2002 Hepatitis C Screening 2005 DTaP/Tdap/Td Vaccines (1 - Tdap) 2006 Hepatitis B Vaccines (1 of 3 - 19+ 3-dose series) 2006 Pap Smear 2008 Cervical Cancer Screening 2017 HPV/Cotest 2017 COVID-19 Vaccine ( season) 2025 Influenza Vaccine (#1) 2025 Dental Prophylaxis 08/01/2025 01/29/2025, 0 11/14/2023, 11/14/2023, Additional history exists Dental Oral Exam 11/11/2025 05/13/2025, , 11/14/2023, Additional history exists Tobacco Screening 05/13/2026 05/13/2025 Dental X-Ray: Bitewings 05/14/2026 05/13/20 25, 01/29/2025, 11/14/2023, Additional history exists Dental X-Ray: Full Mouth [...] Procedure Name Priority Date/Time Associated Diagnosis Comments CASE PRESENTATION, DETAILED AND EXTENSIVE TREATMENT PLANNING Routine 05/13/2025 11:00 AM EDT Encounter for dental examination Dental plaque Dental calculus Teeth missing BITEWINGS - 4 RADIOGRAPHIC IMAGES Routine 05/13/2025 11:00 AM EDT Encounter for dental examination Dental plaque Dental calculus Teeth missing INTRAORAL - PERIAPICAL EACH ADDITIONAL RADIOGRAPHIC IMAGE Routine 05/13/2025 11:00 AM EDT Encounter for dental examination Dental plaque Dental calculus Teeth missing INTRAORAL - PERIAPICAL FIRST RADIOGRAPHIC IMAGE Routine 05/13/2025 11:00 AM EDT Encounter for dental examination Dental plaque Dental calculus Teeth missing PERIODIC ORAL EVALUATION - ESTABLISHED PATIENT Routine 05/13/2025 11:00 AM EDT Encounter for dental examination Dental plaque Dental calculus Teeth missing Full PROPHYLAXIS - ADULT Routine 025 3:00 PM EDT Localized gingival recession [...] Phone Billing Address Dental Self 1985 [address] [facility] [address] [place] [address] [facility]
--- NOTE | 2025-07-27 01:28 | ED_ITS ---
HPI - General Adult General Chief complaint: Nausea/Vomiting/Diarrhea Stated complaint: dehydrated Time Seen by Provider: 07/27/25 00:21 Source: patient Limitations: no limitations History of Present Illness ED Provider: Mai Falk PA-C HPI narrative: 40-year-old female with a history of anxiety and depression who presents with nausea vomiting diarrhea times 1 day. Associated body aches and generalized malaise. Her children at home have been diagnosed with the flu and have the same symptoms. Denies recent travel, use of antibiotics or hospitalization. No abdominal pain, no known fever. Related Data Previous Rx's ?Medication ?Instructions ?Recorded Donut pillow #1 ea 07/31/24 benzonatate 100 mg capsule 200 mg (2 x 100 mg) PO BID #60 caps 02/06/25 dextromethorphan polistirex 30 10 ml PO Q12H cough #89 mL 02/06/25 mg/5 mL oral susp ext.release 12hr (Delsym 12 hour) dicyclomine 20 mg tablet 20 mg PO TID PRN abdominal p ain 07/27/25 #10 tabs ondansetron 4 mg disintegrating 4 mg PO Q8H PRN nausea and 07/27/25 tablet vomiting #10 tabs Allergies Allergy/AdvReac Type Severity Reaction Status Date / Time No Known Allergies Allergy Mild NOT Verified 07/26/25 21:05 APPLICABLE Review of Systems 2 Review of Systems: Yes all other systems are reviewed and are negative Constitutional: Constitutional: Denies fatigue, Denies fever(s) and Reports malaise Cardiovascular: Cardiovascular: Denies chest pain and Denies dyspnea Respiratory: Respiratory: Denies cough and Denies dyspnea Gastrointestinal: Gastrointestinal: Denies abdominal pain, Reports diarrhea, Reports nausea and Reports vomiting Musculoskeletal: Musculoskeletal: Reports myalgias Endocrine: Endocrine: Denies fatigue PMFSH Past Medical History Attestation statement: The following information was validated with the patient. Medical History Acute pharyngitis Hidradenitis suppurativa Epidermal cyst Infected cyst of skin Hx of sigmoidoscopy Insomnia Allergic rhinitis Depression Anxiety Hyperhidrosis Obesity (BMI 30-39.9) Smoker Surgical History History of bilateral tubal ligation (~09/2015) History of tonsillectomy Family History Family History Family/Other Colon cancer Social History Social History Housing: Apartment Patient Tobacco Use Status: Current everyday Tobacco user Tobacco use type: Cigarette Cigarettes Per Day: 5 Smoked in Last 30 Days: No e-Cigarette/Vaping Use: Never Used Second Hand Smoke Exposure: Yes Use of substances other than those prescribed or required for medical reasons: Yes Substance Use Type: Marijuana Advance Directives: No Do you have a plan to hurt others: No Plan Patient : No service: No Current occupational status: employed 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 Cognitive needs: No Hearing needs: No Vision needs: Yes Physical Exam ED Vital Signs: Vital Signs - 24 hr 07/26/25 21:03 07/26/25 23:43 Temperature 98.2 F 98.1 F Pulse Rate 80 68 Respiratory Rate 16 16 Blood Pressure 139/93 H 116/80 Pulse Oximetry 99 98 Oxygen Delivery Method Room Air Room Air BMI result Body Mass Index 29.9 Const Other: Alert Orientation/consciousness: patient oriented x3 Resp Effort & Inspection: normal respiratory effort Cardio Other: Normal peripheral perfusion Skin Other: Warm dry no rash Neuro General: patient oriented x3, gait normal, no focal motor deficits and CN's II- XI intact bilaterally Psych Other: Cooperative Medications Administered Generic Name Dose Route Start Last Admin Trade Name Freq PRN Reason Stop Dose Admin Lactated Ringer's 1,000 mls @ 999 mls/hr 07/27/25 00:30 07/27/25 00:28 Lr IV 07/27/25 01:30 999 mls/hr .Q1H1M DOUGIE Administration Discontinued Medications Generic Name Dose Route Start Last Admin Trade Name Freq PRN Reason Stop Dose Admin Dicyclomine HCl 20 mg 07/27/25 00:21 07/27/25 00:28 Dicyclomine Hcl 10 Mg Capsule PO 07/27/25 00:22 20 mg ONCE ONE Administration Ketorolac Tromethamine 15 mg 07/27/25 00:22 07/27/25 00:28 Ketorolac Tromethamine 15 Mg/Ml Vial IVPUSH 07/27/25 00:23 15 mg ONCE ONE Administration Ondansetron HCl 4 mg 07/27/25 00:21 07/27/25 00:28 Ondansetron Hcl 4 Mg/2 Ml Vial IVPUSH 12/14/25 00:22 4 mg ONCE ONE Administration Medical Decision Making Medical Decision Making [facility] Narrative: 40-year-old female with a history of anxiety and depression who presents with nausea vomiting diarrhea times 1 day. Associated body aches and generalized malaise. Her children at home have been diagnosed with the flu and have the same symptoms. Denies recent travel, use of antibiotics or hospitalization. No abdominal pain, no known fever. No relevant chronic issues History: Per patient I have considered the following differential diagnoses: Viral gastroenteritis, C diff, traveler's diarrhea, diverticulitis, Plan: Patient here with viral gastroenteritis, she has sick contacts with same symptoms. This illness has been circulating within the community. Screening labs including a viral swab were obtained, unremarkable... Giving supportive care. She has no risk factors for C diff or traveler's diarrhea, no belly pain to suggest a diverticulitis I have independently reviewed the following tests: Labs: Slight leukocytosis, not anemic, no electrolyte abnormality, viral panel negative Differential Diagnosis Differential Diagnoses: The differential diagnosis associated with the presentation includes See [facility] Admission/Observation Consideration of admission/observation: Escalation of care including admission/observation considered Not applicable Lab Data [facility] Lab Attestation statement: I reviewed the patient's lab results. 07/26/25 21:28 07/26/25 21:28 Labs: Lab Results 07/26/25 Range/Units 21:28 WBC 11.9 H (4.8-10.8) X10*3/uL RBC 4.54 (4.20-5.50) X10*6/uL Hgb 14.2 (12.0-16.0) g/dl Hct 41.4 (37.0-47.0) % MCV 91.2 (80.0-98.0) fL MCH 31.3 (27.0-33.0) pg MCHC 34.3 (31.0-35.0) g/dl RDW 12.4 (11.0-16.0) % Plt Count 381 D (160-400) X10*3/uL MPV 9.8 (9.4-12.3) fL Immature Gran % (Auto) 0.3 (0.0-0.4) % Neut % (Auto) 67.7 (45-73) % Lymph % (Auto) 24.5 (20-40) % [place] % (Auto) 6.1 (2-11) % Eos % (Auto) 0.5 (0-4) % Baso % (Auto) 0.9 (0-2) % Lymph # (Auto) 2.9 (1.2-4.9) X10*3/uL [place] # (Auto) 0.7 (0.1-1.2) X10*3/uL Eos # (Auto) 0.1 (0.0-0.4) X10*3/uL Baso # (Auto) 0.1 (0.0-0.2) X10*3/uL Abs Immat Gran (auto) 0.03 (0.00-0.03) X10*3/uL Absolute Neuts (auto) 8.1 (2.0-8.3) x10*3/uL Absolute Nucleated RBC 0.000 (0.0-0.012) X10*3/uL Nucleated RBC % (auto) 0.0 (0.0-0.2) /100WBC Sodium 143 (135-145) mmol/L Potassium 3.6 (3.3-5.1) mmol/L Chloride 107 (96-108) mmol/L Carbon Dioxide 27 (22-29) mmol/L Anion Gap 13 (12-20) BUN 13 (9-16) mg/dL Creatinine 0.65 (0.5-1.4) mg/dL Estim Creat Clear Calc 132.6 Estimated GFR > 60 Random Glucose 97 (60-115) mg/dL Calcium 9.3 (8.4-10.2) mg/dL COVID-19 ([facility]MA) Negative (Negative) COVID-19 Clin Com See Note Influenza Type A (ZEINAB) Negative (Negative) Influenza Type B (ZEINAB) Negative (Negative) Influenza A & B Note See Note S. pyogenes GrpA ZEINAB Negative (Negative) Discharge Plan Discharge Clinical Impression: Viral gastroenteritis Patient Disposition: Home, Self-Care Instructions: Gastroenteritis (ED) Additional Instructions: You are being treated for suspect viral gastroenteritis. You had no lab abnormalities, you were tested for influenza COVID and RSV, the viral panel was negative. See home care instructions. Use [id number] ibuprofen and Tylenol for fevers and body aches. Uses Zofran as needed for nausea. Use the dicyclomine as needed for abdominal cramping/diarrhea. Follow up with your primary care provider as needed. Prescriptions: New dicyclomine 20 mg tablet 20 mg PO TID PRN (Reason: abdominal pain) Qty: 10 0RF ondansetron 4 mg tablet,disintegrating 4 mg PO Q8H PRN (Reason: nausea and vomiting) Qty: 10 0RF No Action (DME) Donut denice Misc See Rx Instructions .Route Qty: 1 0RF Rx Instructions: As directed benzonatate 100 mg capsule 200 mg PO BID Qty: 60 0RF dextromethorphan polistirex [Delsym 12 hour] 30 mg/5 mL suspension,extended rel 12 hr 10 ml PO Q12H Qty: 89 0RF Stand Alone Forms: Work/School Release Print Language: Ivorian
[2025-07-27 02:18] VITALS: BP 108/64; PULSE 77; RESP 18; TEMP 36.8; O2SAT 100
== END 2025-07-27 02:59 | disposition home or self-care (01) ==
PROVIDERS: Emergency Provider Emergency Medicine; PCP Internal Medicine
DX: A08.4 Viral intestinal infection, unspecified (principal)
CPT/HCPCS: 80048; 85025; 87502; 87635; 87651; 96361; 96374; 96375; 99284; J1885; J2405; J7120